=== PATIENT | female | born 1940 | race Caucasian/White ===

== ENCOUNTER 2020-10-16 09:43 | Emergency (ER) | payer OTHER, SELFPAY ==
[2020-10-16 09:51] VITALS: BP 138/94; BP 142/86; PULSE 77; PULSE 93; RESP 20; TEMP 36.8; O2SAT 93; BMI 49.6
--- NOTE | 2020-10-16 09:55 | XR_ITS ---
EXAMINATION: XR CHEST CLINICAL INFORMATION: Cough and fever. COMPARISON: Chest 01/03/2018 TECHNIQUE: Frontal view of the chest was obtained. FINDINGS: The lungs are expanded with increased interstitial markings in both lungs similar to previous study. No confluent infiltrate or pleural effusion seen. Heart size and pulmonary vascularity appears to be normal. No gross bony abnormality seen. XR/XR chest 1V IMPRESSION: Increase interstitial markings in both lungs similar previous study. Adjacent interstitial pneumonitis versus edema. Similar findings were seen on the previous study 01/03/2018
--- NOTE | 2020-10-16 09:55 | ECG_ITS ---
Test Reason : WEAKNESS Blood Pressure : / mmHG Vent. Rate : 083 BPM Atrial Rate : 097 BPM P-R Int : 000 ms QRS Dur : 078 ms QT Int : 370 ms P-R-T Axes : 000 -41 -26 degrees QTc Int : 434 ms Atrial fibrillation Left axis deviation Minimal voltage criteria for LVH, may be normal variant Nonspecific ST abnormality Abnormal ECG When compared with ECG of 03-JAN-2018 10:17, No significant change was found Referred By: Marck Joseph Electronically Signed By:BOBY DUVAL
[2020-10-16 10:26] LABS: Basophils Percent Auto 0.6 % (0-2); Eosinophils Percent Auto 0.3 % (0-4); Hematocrit 44.5 % (37-47); Hemoglobin 14.2 g/dl (12.0-16.0); Imm Gran Abs Auto 0.06 X10*3/uL (0.00-0.03); Imm Gran Pct Auto 1.8 % (0.0-0.4); Lymphocytes Absolute Auto 0.5 X10*3/uL (1.2-4.9); Lymphocytes Percent Auto 15.6 % (20-40); MANUAL DIFF FLAG SCAN; Mean Corpuscular HGB Conc 31.9 g/dl (31.0-35.0); Mean Corpuscular Hemoglobin 31.1 pg (27.0-33.0); Mean Corpuscular Volume 97.6 fL (80-98); Mean Platelet Volume 10.3 fL (9.4-12.3); Monocytes Absolute Auto 0.5 X10*3/uL (0.1-1.2); Monocytes Percent Auto 13.3 % (2-11); Neutrophils Absolute Auto 2.3 X10*3/uL (2.0-8.3); Neutrophils Percent Auto 68.4 % (45-73); Platelet Count 158 X10*3/uL (160-400); Red Blood Count 4.56 X10*6/uL (4.20-5.50); Red Cell Distribution Width 14.1 % (11.0-16.0); SCAN SMEAR FLAG 1; White Blood Count 3.4 X10*3/uL (4.8-10.8)
[2020-10-16 10:31] LABS: INTERNATIONAL NORM RATIO 1.1 (0.9-1.1); Prothrombin Time 12.8 SEC (10.8-13.0)
[2020-10-16 10:34] LABS: Partial Thromboplastin Time 31.4 SEC (24.1-38.0)
--- NOTE | 2020-10-16 10:36 | ED.GENADULT ---
HPI - General Adult General Chief complaint: Nausea/Vomiting/Diarrhea Stated complaint: NAUSEA AND VOMITING Time Seen by Provider: 10/16/20 09:55 Source: EMS Mode of arrival: EMS Limitations: no limitations History of Present Illness HPI narrative: 80-year-old female reports history of hypertension and atrial fibrillation chronically anticoagulated on Eliquis also surgical history of hysterectomy, appendectomy and cholecystectomy who presents today with 4 days of body aches and chills as well as nausea and vomiting. States Wednesday she started with upset stomach after eating something that evening had some body aches and subjective chills and fever and since has had some nausea and body aches with now some mild cough. States she has been isolated has not been outside for about 8 months now does not feel that she has COVID. Onset (ago): day(s) Severity: moderate Relieving factors: none Treatments prior to arrival: none Related Data Previous Rx's Medication Instructions Recorded citalopram 10 mg tablet 10 mg PO DAILY #90 tab 08/25/20 ondansetron HCl [Zofran] 4 mg PO Q8H PRN #10 tab 10/16/20 Allergies Allergy/AdvReac Type Severity Reaction Status Date / Time ciprofloxacin Allergy Unknown HIVES Unverified 06/13/20 15:11 warfarin [Coumadin] Allergy Unknown Rash Verified 01/25/19 00:00 From COUMADIN Allergy Unknown RASH Uncoded 06/13/20 15:11 Review of Systems Review of Systems: Constitutional: No Weight loss, + subjective Fever, + Chills, No Night Sweats, No Fatigue, No Malaise ENT/Mouth: No Hearing loss, No Ear Pain, No Nasal Congestion, No Sinus Pain, No Hoarseness, No sore throat, No Rhinorrhea, No Swallowing Difficulty Eyes: No Eye Pain, No Swelling, No Redness, No Foreign Body, No Discharge, No Vision Changes Cardiovascular: No Chest Pain, No SOB, No Dyspnea on Exertion, No Orthopnea, No Edema, No Palpitations Respiratory: +mild Cough, No Sputum, No Wheezing, No Smoke Exposure, No Dyspnea Gastrointestinal: As noted in HPI, No Constipation, No abdominal Pain, No Hematochezia, No Melena Genitourinary: no irregular bleeding, No Dysuria, No Urinary Frequency, No Hematuria, No Urinary Incontinence, No Urgency, No Flank Pain, No Urinary Flow Changes, No Hesitancy Musculoskeletal: No joint pain, No Myalgias, No Joint Swelling Skin: No Skin Lesions, No rash Neuro: No Weakness, No Numbness, No Paresthesias, No Loss of Consciousness, No Dizziness, No Headache Psych: No Social Issues Heme/Lymph: No Bruising, No Bleeding,No Lymphadenopathy Endocrine: No Polyuria, No Polydipsia, No Temperature Intolerance Yes all other systems are reviewed and are negative [facility] Past Medical History Medical History (Updated 10/17/20 @ 00:00 by Barrett Earl) Afib FH: cholecystectomy HTN (hypertension) Surgical History (Updated 10/16/20 @ 09:57 by Iveth Zambrano) H/O: hysterectomy History of appendectomy Social History Social History Alcohol intake: never Smoked in Last 30 Days: No Use of substances other than those prescribed or required for medical reasons: No Advance Directives: No Advance Directives Information Provided: No Physical Exam Vital Signs: Vital Signs: Last Vital Signs Temp 98.8 F 10/16/20 12:41 Pulse 89 10/16/20 12:41 Resp 22 H 10/16/20 12:41 BP 149/91 H 10/16/20 12:41 Pulse Ox 97 10/16/20 12:41 Body Mass Index 49.6 Reviewed Const: General: cooperative and healthy appearing; No acute distress or intoxicated appearing Nutritional Appearance: average body habitus Orientation/consciousness: patient oriented x3 HENMT: Head: Yes normal to inspection Ears: hearing grossly normal bilaterally Eyes: General: appearance normal, both eyes and all related structures Visual Benjamin: normal visual benjamin by confrontation Neck: Neck: Yes normal visual inspection, No positive Brudzinski's sign, No positive Kernig's sign and No tender Thyroid: Thyroid normal Chest: Chest palpation & inspection: normal inspection of the chest Resp: Effort & Inspection: normal respiratory effort Auscultation: clear to auscultation bilaterally Cardio: Jugular venous distension: no JVD Rhythm: regular rhythm Heart sounds: S1 normal heart sound present and S2 normal heart sound present GI: Inspection: Yes normal to inspection Palpation (GI): Soft to palpation Percussion: Yes normal to percussion Auscultation: normal bowel sounds : General: Yes no CVA tenderness Back/Spine/Pelvis: Back: no CVA tenderness Skin: General skin exam: no rashes or lesions noted Neuro: General: patient oriented x3 Extrem: General: Yes normal to inspection Course Course Course Narrative: COVID positive, has not had any chest pain or shortness of breath here. No nausea vomiting or diarrhea after 1 dose of Zofran. Has been resting comfortably hemodynamically stable. Pulse ox 98% on room air. Afebrile, nontoxic, non tachypneic. Otherwise workup stable no indication for admission this time. She has tolerated p.o. intake well. Educated on COVID-19 virus, return and follow-up instructions. She is comfortable plan. Stable discharge. Medical Decision Making Lab Data Result diagrams: 10/16/20 10:15 10/16/20 10:15 Labs: Lab Results 10/16/20 10/16/20 10/16/20 Range/Units 10:15 10:15 10:15 WBC 3.4 L (4.8-10.8) X10*3/uL RBC 4.56 (4.20-5.50) X10*6/uL Hgb 14.2 (12.0-16.0) g/dl Hct 44.5 (37-47) % MCV 97.6 (80-98) fL MCH 31.1 (27.0-33.0) pg MCHC 31.9 (31.0-35.0) g/dl RDW 14.1 (11.0-16.0) % Plt Count 158 L (160-400) X10*3/uL MPV 10.3 (9.4-12.3) fL Immature Gran % (Auto) 1.8 H (0.0-0.4) % Neut % (Auto) 68.4 (45-73) % Lymph % (Auto) 15.6 L (20-40) % Kendall % (Auto) 13.3 H (2-11) % Eos % (Auto) 0.3 (0-4) % Baso % (Auto) 0.6 (0-2) % Lymph # (Auto) 0.5 L (1.2-4.9) X10*3/uL Kendall # (Auto) 0.5 (0.1-1.2) X10*3/uL Eos # (Auto) 0.0 (0.0-0.4) X10*3/uL Baso # (Auto) 0.0 (0.0-0.2) X10*3/uL Abs Immat Gran (auto) 0.06 H (0.00-0.03) X10*3/uL Absolute Neuts (auto) 2.3 (2.0-8.3) X10*3/uL Absolute Nucleated RBC 0.000 (0.0-0.012) X10*3/uL Nucleated RBC % (auto) 0.0 (0.0-0.2) /100WBC Smear Tech's Comments VERIFIED PT 12.8 (10.8-13.0) SEC INR 1.1 (0.9-1.1) APTT 31.4 (24.1-38.0) SEC Sodium 138 (135-145) mmol/L Potassium 4.2 (3.3-5.1) mmol/l Chloride 102 (96-108) mmol/L Carbon Dioxide 26 (22-29) mmol/L Anion Gap 14 (12-20) BUN 16 (9-16) mg/dL Creatinine 1.01 (0.5-1.4) mg/dL Estim Creat Clear Calc 59.6 Estimated GFR 53 Random Glucose 133 H (60-115) mg/dL Calcium 8.4 (8.4-10.2) mg/dL Total Bilirubin 0.2 (0.0-1.0) mg/dL Direct Bilirubin < 0.2 (0.0-0.5) mg/dL AST 47 H (5-31) U/L ALT 41 H (0-31) U/L Alkaline Phosphatase 67 (39-117) U/L B-Natriuretic Peptide (<100) pg/mL Total Protein 7.2 (6.5-8.0) g/dL Albumin 3.9 (3.5-5.0) g/dL Coronavirus (PCR) (Negative) Influenza Type A (PCR) (Negative) Influenza Type B (PCR) (Negative) RSV RNA Qual (PCR) (Negative) 10/16/20 10/16/20 Range/Units 10:16 10:51 WBC (4.8-10.8) X10*3/uL RBC (4.20-5.50) X10*6/uL Hgb (12.0-16.0) g/dl Hct (37-47) % MCV (80-98) fL MCH (27.0-33.0) pg MCHC (31.0-35.0) g/dl RDW (11.0-16.0) % Plt Count (160-400) X10*3/uL MPV (9.4-12.3) fL Immature Gran % (Auto) (0.0-0.4) % Neut % (Auto) (45-73) % Lymph % (Auto) (20-40) % Kendall % (Auto) (2-11) % Eos % (Auto) (0-4) % Baso % (Auto) (0-2) % Lymph # (Auto) (1.2-4.9) X10*3/uL Kendall # (Auto) (0.1-1.2) X10*3/uL Eos # (Auto) (0.0-0.4) X10*3/uL Baso # (Auto) (0.0-0.2) X10*3/uL Abs Immat Gran (auto) (0.00-0.03) X10*3/uL Absolute Neuts (auto) (2.0-8.3) X10*3/uL Absolute Nucleated RBC (0.0-0.012) X10*3/uL Nucleated RBC % (auto) (0.0-0.2) /100WBC Smear Tech's Comments PT (10.8-13.0) SEC INR (0.9-1.1) APTT (24.1-38.0) SEC Sodium (135-145) mmol/L Potassium (3.3-5.1) mmol/l Chloride (96-108) mmol/L Carbon Dioxide (22-29) mmol/L Anion Gap (12-20) BUN (9-16) mg/dL Creatinine (0.5-1.4) mg/dL Estim Creat Clear Calc Estimated GFR Random Glucose (60-115) mg/dL Calcium (8.4-10.2) mg/dL Total Bilirubin (0.0-1.0) mg/dL Direct Bilirubin (0.0-0.5) mg/dL AST (5-31) U/L ALT (0-31) U/L Alkaline Phosphatase (39-117) U/L B-Natriuretic Peptide 22 (<100) pg/mL Total Protein (6.5-8.0) g/dL Albumin (3.5-5.0) g/dL Coronavirus (PCR) POSITIVE A (Negative) Influenza Type A (PCR) NEGATIVE (Negative) Influenza Type B (PCR) NEGATIVE (Negative) RSV RNA Qual (PCR) NEGATIVE (Negative) Imaging Data Chest/abdominal CT: Radiologist's impression: [address] [id number] Scan ReportSigned Patient: Cate Parker MMR#: [id number]: 3Acct:[id number]/Sex: 80 / FADM Date: 10/16/20Loc: ED[facility] Dr: Ordering Physician: Marck Joseph NP Date of Service: 10/16/20 Procedure(s): CT chest wo con Accession Number(s): [id number] cc: Marck Joseph SCIENTIFIC DIVER~ EXAMINATION: CT CHEST WITHOUT IV CONTRAST, ABDOMEN AND PELVIS WITH IV CONTRAST CLINICAL INFORMATION: Cough and fever. Abdominal pain. COMPARISON: Previous chest x-ray from earlier the same day and previous CT of the abdomen and pelvis September 2016 TECHNIQUE: Axial images through the chest without IV contrast, and abdomen and pelvis following oral and 100 mL Omnipaque 350 intravenous contrast. Sagittal and coronal reconstructions on the technologist workstation were performed. Patient dose 454+135 1 mg/cm. FINDINGS: CHEST: There are increased peripheral interstitial markings with interlobular septal thickening and increasing areas of increased parenchymal attenuation. Possible interstitial lung disease should be considered. Appearance is atypical for acute Covid infection. It is possible findings represent residual changes from old Covid infection. Correlation with clinical history is recommended. No pulmonary nodule, mass or dense consolidation/lobar pneumonia is seen. There is no endobronchial or endotracheal lesion. No evidence of emphysema or bronchiectasis is seen. The visualized thyroid gland is unremarkable. There are small mediastinal lymph nodes. No enlarged lymph nodes are seen. The heart does not appear enlarged. There is mild coronary artery calcification. There is no pericardial effusion. There is a small esophageal hernia. There is no pleural effusion or pleural thickening. No chest wall mass or enlarged axillary lymph nodes are seen. There are degenerative changes of the thoracic spine. Abdomen and pelvis: The liver is slightly low in attenuation suggestive of fatty infiltration. The gallbladder is been removed. There is no biliary duct dilatation. The spleen is unremarkable. The pancreas is unremarkable. The adrenal glands are unremarkable. The left kidney is slightly smaller than the right. There are areas of left renal cortical thinning or scarring. The kidneys are otherwise unremarkable. The bladder is not optimally distended. The uterus appears to have been removed. No pelvic mass is seen. There is diverticulosis of the colon. Small and large bowel is otherwise unremarkable. The stomach is unremarkable. There is evidence of atherosclerotic disease. No ascites or adenopathy is seen. There is diastasis of the rectus muscles. There are umbilical and infraumbilical or low ventral hernias containing fat. There are degenerative changes of the spine. CT/CT chest wo con IMPRESSION: CHEST: Increased peripheral interstitial markings and areas of increased increased peripheral attenuation. Chest CT CT appearance is most suggestive of interstitial lung disease. Appearance is not suggestive of acute COVID infection. It is possible this represents changes from old Covid infection. Clinical correlation recommended. Shotty mediastinal lymphadenopathy. Mild coronary artery calcification. Small esophageal hernia. Abdomen and pelvis: Diverticulosis of the colon. No evidence of diverticulitis. Fatty liver. Left renal cortical thinning or scarring. Umbilical and inferior umbilical or low ventral hernias containing fat. Dictated By:LAVERNE GONG MDSigned By:<Electronically signed by LAVERNE GONG MD in OV>10/16/20 1403 DD/ 1159TD/TT: Weld Inspector: JOIE ECG Data Interpretation: Atrial fibrillation Left axis deviation Minimal voltage criteria for LVH, may be normal variant Nonspecific ST abnormality Abnormal ECG When compared with ECG of 03-JAN-2018 10:17, No significant change was found Discharge Plan Discharge Clinical Impression: Nausea & vomiting, COVID-19 Patient Disposition: Home, Self-Care Instructions: Acute Nausea and Vomiting (ED), COVID-19 (Coronavirus Disease 2019) (ED) Prescriptions: New ondansetron HCl [Zofran] 4 mg tablet 4 mg PO Q8H PRN (Reason: nausea and vomiting) Qty: 10 RF: 0 No Action citalopram 10 mg tablet 10 mg PO DAILY Qty: 90 RF: 0 Interventions: ED Discharge Assessment Last Done: 10/16/20 15:08 Discharge Date/Time: 10/16/20 16:01
[2020-10-16 10:59] LABS: Alanine Aminotransferase 41 U/L (0-31); Albumin Level 3.9 g/dL (3.5-5.0); Alkaline Phosphatase 67 U/L (39-117); Anion Gap 14 (12-20); Aspartate Amino Transferase 47 U/L (5-31); Bilirubin Direct < 0.2 mg/dL (0.0-0.5); Bilirubin Total 0.2 mg/dL (0.0-1.0); Blood Urea Nitrogen 16 mg/dL (9-16); Calcium 8.4 mg/dL (8.4-10.2); Carbon Dioxide 26 mmol/L (22-29); Chloride 102 mmol/L (96-108); Creatinine Clr Calc Pharmacy 59.6; Estimated Glomerular Filt Rate 53; Glucose Random 133 mg/dL (60-115); Potassium 4.2 mmol/l (3.3-5.1); SLIDE REVIEW VERIFIED; Sodium 138 mmol/L (135-145); Total Protein 7.2 g/dL (6.5-8.0)
[2020-10-16 11:11] VITALS: BP 149/93; PULSE 90; RESP 16; TEMP 37.4; O2SAT 96
[2020-10-16 11:33] LABS: B Type Natriuretic Peptide 22 pg/mL (<100)
[2020-10-16 11:45] LABS: Influenza A PCR NEGATIVE (Negative); Influenza B PCR NEGATIVE (Negative); Resp Syncy Virus RNA Qual PCR NEGATIVE (Negative); SARS COV2 PCR INHOUSE POSITIVE (Negative)
--- NOTE | 2020-10-16 11:59 | CT_ITS ---
EXAMINATION: CT CHEST WITHOUT IV CONTRAST, ABDOMEN AND PELVIS WITH IV CONTRAST CLINICAL INFORMATION: Cough and fever. Abdominal pain. COMPARISON: Previous chest x-ray from earlier the same day and previous CT of the abdomen and pelvis September 2016 TECHNIQUE: Axial images through the chest without IV contrast, and abdomen and pelvis following oral and 100 mL Omnipaque 350 intravenous contrast. Sagittal and coronal reconstructions on the technologist workstation were performed. Patient dose 454+135 1 mg/cm. FINDINGS: CHEST: There are increased peripheral interstitial markings with interlobular septal thickening and increasing areas of increased parenchymal attenuation. Possible interstitial lung disease should be considered. Appearance is atypical for acute Covid infection. It is possible findings represent residual changes from old Covid infection. Correlation with clinical history is recommended. No pulmonary nodule, mass or dense consolidation/lobar pneumonia is seen. There is no endobronchial or endotracheal lesion. No evidence of emphysema or bronchiectasis is seen. The visualized thyroid gland is unremarkable. There are small mediastinal lymph nodes. No enlarged lymph nodes are seen. The heart does not appear enlarged. There is mild coronary artery calcification. There is no pericardial effusion. There is a small esophageal hernia. There is no pleural effusion or pleural thickening. No chest wall mass or enlarged axillary lymph nodes are seen. There are degenerative changes of the thoracic spine. Abdomen and pelvis: The liver is slightly low in attenuation suggestive of fatty infiltration. The gallbladder is been removed. There is no biliary duct dilatation. The spleen is unremarkable. The pancreas is unremarkable. The adrenal glands are unremarkable. The left kidney is slightly smaller than the right. There are areas of left renal cortical thinning or scarring. The kidneys are otherwise unremarkable. The bladder is not optimally distended. The uterus appears to have been removed. No pelvic mass is seen. There is diverticulosis of the colon. Small and large bowel is otherwise unremarkable. The stomach is unremarkable. There is evidence of atherosclerotic disease. No ascites or adenopathy is seen. There is diastasis of the rectus muscles. There are umbilical and infraumbilical or low ventral hernias containing fat. There are degenerative changes of the spine. CT/CT abdomen pelvis w con IMPRESSION: CHEST: Increased peripheral interstitial markings and areas of increased increased peripheral attenuation. Chest CT CT appearance is most suggestive of interstitial lung disease. Appearance is not suggestive of acute COVID infection. It is possible this represents changes from old Covid infection. Clinical correlation recommended. Shotty mediastinal lymphadenopathy. Mild coronary artery calcification. Small esophageal hernia. Abdomen and pelvis: Diverticulosis of the colon. No evidence of diverticulitis. Fatty liver. Left renal cortical thinning or scarring. Umbilical and inferior umbilical or low ventral hernias containing fat.
[2020-10-16 12:41] VITALS: BP 149/91; PULSE 89; RESP 22; TEMP 37.1; O2SAT 97
[2020-10-16] MEDS: ondansetron HCL 4 MG/2 ML VIAL IVPUSH (12:54)
[2020-10-16] MEDS: iohexoL 350 MG/ML 100 ML INFUS..BTL IV (13:46)
== END 2020-10-16 16:01 | disposition home or self-care (01) ==
PROVIDERS: Nurse Practitioner Primary Care; Emergency Provider Emergency Medicine; PCP Internal Medicine
DX: U07.1 COVID-19 (principal); R11.2 Nausea with vomiting, unspecified; R05 Cough; R50.9 Fever, unspecified; R10.9 Unspecified abdominal pain
CPT/HCPCS: 0241U; 36415; 71045; 71250; 74177; 80053; 80076; 82248; 83880; 85025; 85610; 85730; 93005; 96374; 99284; J2405; Q9967

== ENCOUNTER 2020-12-05 08:54 | Outpatient (REF) | payer MEDICARE, SELFPAY ==
[2020-12-05 12:17] LABS: Alanine Aminotransferase 14 U/L (0-31); Anion Gap 13 (12-20); Aspartate Amino Transferase 16 U/L (5-31); Blood Urea Nitrogen 17 mg/dL (9-16); Calcium 9.5 mg/dL (8.4-10.2); Carbon Dioxide 30 mmol/L (22-29); Chloride 102 mmol/L (96-108); Cholesterol 147 mg/dL; Estimated Glomerular Filt Rate 50; Glucose Fasting 126 mg/dL (60-99); HDL Cholesterol 57 mg/dL; LDL Cholesterol Calculated 57 mg/dl; Potassium 4.4 mmol/L (3.3-5.1); Sodium 141 mmol/L (135-145); Triglycerides 165 mg/dL
[2020-12-05 12:18] LABS: Vitamin D 25-OH Total 39.8 ng/mL (>30)
== END 2020-12-05 08:55 | disposition home or self-care (01) ==
LOC: HO.HMGCLDS 08:54
PROVIDERS: PCP Internal Medicine; Visit Provider Internal Medicine
DX: E78.5 Hyperlipidemia, unspecified (principal); I10 Essential (primary) hypertension; Z78.0 Asymptomatic menopausal state
CPT/HCPCS: 36415; 80048; 80061; 82306; 84450; 84460

== ENCOUNTER → 2021-04-30 12:08 | Outpatient (BNVA) | payer MEDICARE, SELFPAY | PROVIDERS: PCP Internal Medicine; Visit Provider Internal Medicine | DX: I48.21 Permanent atrial fibrillation (principal); I42.8 Other cardiomyopathies | CPT/HCPCS: 93005; 99202 ==

== ENCOUNTER 2021-06-24 08:25 | Outpatient (REF) | payer MEDICARE, SELFPAY ==
[2021-06-24 12:13] LABS: Alanine Aminotransferase 12 U/L (0-31); Anion Gap 17 (12-20); Aspartate Amino Transferase 13 U/L (5-31); Blood Urea Nitrogen 12 mg/dL (9-16); Calcium 9.1 mg/dL (8.4-10.2); Carbon Dioxide 26 mmol/L (22-29); Chloride 105 mmol/L (96-108); Cholesterol 157 mg/dL; Estimated Glomerular Filt Rate 51; Glucose Fasting 124 mg/dL (60-99); HDL Cholesterol 56 mg/dL; LDL Cholesterol Calculated 58 mg/dl; Potassium 4.5 mmol/L (3.3-5.1); Sodium 143 mmol/L (135-145); Triglycerides 217 mg/dL
[2021-06-24 12:16] LABS: TSH reflex Free T4 2.58 uIU/mL (0.32-4.0); Vitamin D 25-OH Total 38.8 ng/mL (>30)
== END 2021-06-24 08:26 | disposition home or self-care (01) ==
LOC: HO.HMGCLDS 08:25
PROVIDERS: PCP Internal Medicine; Visit Provider Internal Medicine
DX: I48.91 Unspecified atrial fibrillation (principal); F32.9 Major depressive disorder, single episode, unspecified; I10 Essential (primary) hypertension; E78.5 Hyperlipidemia, unspecified; Z78.0 Asymptomatic menopausal state
CPT/HCPCS: 36415; 80048; 80061; 82306; 84443; 84450; 84460

== ENCOUNTER 2021-08-23 11:34 | Outpatient (REF) | payer MEDICARE, SELFPAY ==
--- NOTE | ~2021-08-23 | XR_ITS ---
EXAMINATION: XR CHEST CLINICAL INFORMATION: Bronchitis. COMPARISON: Chest 10/16/2020 TECHNIQUE: 2 views of the chest were obtained. FINDINGS: The lungs are well-expanded with prominent vascular markings and underlying fine interstitial markings as well. Heart size is borderline normal. No gross bony abnormality. XR/XR chest 2V IMPRESSION: Suspect central pulmonary vascular congestion with underlying mild chronic interstitial lung changes. Similar findings were seen on chest x-ray and CT chest exam 10/16/2020
== END 2021-08-23 11:35 | disposition home or self-care (01) ==
LOC: HO.HMGCX 11:34
PROVIDERS: PCP Internal Medicine; Visit Provider Internal Medicine
DX: J40 Bronchitis, not specified as acute or chronic (principal)
CPT/HCPCS: 71046

== ENCOUNTER 2021-08-23 13:05 | Outpatient (REF) | payer MEDICARE, SELFPAY ==
[2021-08-23 14:22] LABS: Influenza A PCR NEGATIVE (Negative); Influenza B PCR NEGATIVE (Negative); Resp Syncy Virus RNA Qual PCR NEGATIVE (Negative); SARS COV2 PCR INHOUSE NEGATIVE (Negative)
== END 2021-08-23 13:06 | disposition home or self-care (01) ==
LOC: HO.LNP 13:05
PROVIDERS: Visit Provider Internal Medicine
DX: Z20.822 Contact with and (suspected) exposure to COVID-19 (principal); R43.9 Unspecified disturbances of smell and taste
CPT/HCPCS: 0241U

== ENCOUNTER 2021-12-23 08:51 | Outpatient (REF) | payer MEDICARE, SELFPAY ==
[2021-12-23 11:33] LABS: MANUAL DIFF FLAG NO
[2021-12-23 11:46] LABS: Basophils Percent Auto 0.4 % (0-2); Eosinophils Absolute Auto 0.2 X10*3/uL (0.0-0.4); Eosinophils Percent Auto 1.8 % (0-4); Hematocrit 43.2 % (37.0-47.0); Hemoglobin 13.7 g/dl (12.0-16.0); Imm Gran Abs Auto 0.09 X10*3/uL (0.00-0.03); Imm Gran Pct Auto 1.1 % (0.0-0.4); Lymphocytes Absolute Auto 1.1 X10*3/uL (1.2-4.9); Mean Corpuscular HGB Conc 31.7 g/dl (31.0-35.0); Mean Corpuscular Hemoglobin 31.6 pg (27.0-33.0); Mean Corpuscular Volume 99.8 fL (80.0-98.0); Mean Platelet Volume 10.8 fL (9.4-12.3); Monocytes Absolute Auto 0.6 X10*3/uL (0.1-1.2); Monocytes Percent Auto 6.6 % (2-11); Neutrophils Absolute Auto 6.5 x10*3/uL (2.0-8.3); Neutrophils Percent Auto 77.1 % (45-73); Platelet Count 225 X10*3/uL (160-400); Red Blood Count 4.33 X10*6/uL (4.20-5.50); Red Cell Distribution Width 14.3 % (11.0-16.0); White Blood Count 8.5 X10*3/uL (4.8-10.8)
[2021-12-23 11:54] LABS: Alanine Aminotransferase 12 U/L (0-31); Anion Gap 14 (12-20); Aspartate Amino Transferase 13 U/L (5-31); Blood Urea Nitrogen 19 mg/dL (9-16); Calcium 9.4 mg/dL (8.4-10.2); Carbon Dioxide 29 mmol/L (22-29); Chloride 103 mmol/L (96-108); Cholesterol 156 mg/dL; Estimated Glomerular Filt Rate 43; Glucose Fasting 134 mg/dL (60-99); HDL Cholesterol 52 mg/dL; LDL Cholesterol Calculated 66 mg/dl; Potassium 4.6 mmol/L (3.3-5.1); Sodium 141 mmol/L (135-145); Triglycerides 192 mg/dL
[2021-12-23 12:17] LABS: Vitamin D 25-OH Total 47.6 ng/mL (>30)
== END 2021-12-23 08:52 | disposition home or self-care (01) ==
LOC: HO.HMGCLDS 08:51
PROVIDERS: Visit Provider Internal Medicine
DX: I10 Essential (primary) hypertension (principal); I48.21 Permanent atrial fibrillation; E78.5 Hyperlipidemia, unspecified; R73.01 Impaired fasting glucose; Z78.0 Asymptomatic menopausal state
CPT/HCPCS: 36415; 80048; 80061; 82306; 84450; 84460; 85025

== ENCOUNTER → 2022-04-02 12:36 | Outpatient (REF) | payer MEDICARE, SELFPAY ==
--- NOTE | 2022-04-02 12:40 | CA_ITS ---
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 Low normal LVEF of 50-55% 2. Mild mitral regurgitation 3. No gross pericardial effusion Findings Left Ventricle Normal left ventricular cavity size. There is normal left ventricular wall thickness. The left ventricular systolic function is low normal. The visually estimated ejection fraction is between 50-55%. Diastolic function is indeterminate on the basis of available data. Right Ventricle Normal right ventricular cavity size. Atria The left atrium is likely dilated. There is lipomatous hypertrophy of the interatrial septum. There is no evidence of interatrial shunt. The right atrium was not well visualized. Aortic Valve There is mild calcification of the aortic valve. There is no aortic valve stenosis. There is no aortic valve regurgitation. Mitral Valve There is mild anterior and posterior mitral leaflet thickening. There is mild mitral annular calcification. There is mild mitral valve regurgitation. There is no mitral valve stenosis. Pulmonic Valve The pulmonic valve was not well visualized. Tricuspid Valve The tricuspid valve was not well visualized. Tricuspid regurgitation envelope is inadequate for calculation of right ventricular systolic pressure. Normal right atrial pressure. Great Vessels All visible segments of the aorta are normal in size. The pulmonary artery was not well visualized. Pericardium/Pleural There is no evidence of pericardial effusion. Prior Study Comparison Changes noted compared to prior study dated: 07/20/2014. LV systolic function is marginally improved Measurements 2D Linear Measurements IVSd: 0.88 0.6-0.9/0.6-1.0 cm LVIDd: 4.94 3.9-5.3/4.2-5.9 cm LVIDd Index: 2.22 2.4-3.2/2.2-3.1 cm/m2 LVIDs: 3.81 2.0-3.6 cm LVPWd: 1.00 0.7-1.1 cm LA Diam: 3.60 2.7-3.8/3.0-4.0 cm LAIDs Index: 1.61 1.5-2.3 cm/m2 LV Mass: 204.96 67-162/88-224 g LV Mass Index: 91.91 43-95/49-115 g/m2 LVOT Diam: 1.90 3.0+(-)1.3 cm 2D Systolic Function EF 4C: 51.60 >55% EF 2C: 49.50 >55% EF BiP: 50.50 >55% Mitral Valve MV Pk E: 1.18 MV Decel Time: 210.00 E'Lateral: 9.19 E'Medial: 7.06 E/E' Med: 16.70 E/E' Lat: 12.80 PHT: 62.00 MVA PHT: 3.55 Decel Pike: 5.64 Aortic Valve AoV Pk Malvin: 1.29 AoV Mn Malvin: 0.89 AoV VTI: 0.29 AoV Pk Grad: 7.00 Aov Mn Grad: 4.00 DESTINI Cont.VTI: 1.74 LVOT LVOT Pk Malvin: 0.80 LVOT Mn Malvin: 0.54 LVOT VTI: 0.18 LVOT Pk Grad: 3.00 LVOT Mn Grad: 1.00 LVOT Diam: 1.90 LVOT Area: 2.84 Diastolic Function MV Pk E: 1.18 E'Medial: 7.06 E/E' Med: 16.70 E' Laterial: 9.19 E/E' Lat: 12.80 Right Ventricle TAPSE (mm): 17.50 TVS' Malvin: 7.59 Tricuspid Valve RA Press: 3.00 Great Vessels Aorta Sinus of Valsalva: 3.54 2.0-3.[address] Ridge: 2.82 1.7-3.4 cm Ao Asc: 3.30 2.1-3.4 cm Updated in Other Vendor System with Status of Final Clif Fernandez MD electronically signed on 04/03/2022 12:36:44 PM with status of Final
== END ==
LOC: HO.CARD 12:36
PROVIDERS: PCP Internal Medicine; Visit Provider Internal Medicine
DX: I42.8 Other cardiomyopathies (principal)
CPT/HCPCS: 93306

== ENCOUNTER → 2022-04-06 12:40 | Outpatient (BNVA) | payer MEDICARE, SELFPAY | PROVIDERS: PCP Internal Medicine; Referring Provider Internal Medicine; Visit Provider Internal Medicine Cardiovascular Disease | DX: I48.21 Permanent atrial fibrillation (principal); I42.8 Other cardiomyopathies; Z79.01 Long term (current) use of anticoagulants | CPT/HCPCS: 99212 ==

== ENCOUNTER 2022-07-02 09:20 | Outpatient (REF) | payer MEDICARE, SELFPAY ==
[2022-07-02 11:25] LABS: Estimated Average Glucose 120 mg/dL; Hemoglobin A1c % 5.8 %
[2022-07-02 11:51] LABS: Vitamin D 25-OH Total 43.3 ng/mL (>30)
[2022-07-02 11:54] LABS: Alanine Aminotransferase 12 U/L (0-31); Anion Gap 15 (12-20); Aspartate Amino Transferase 15 U/L (5-31); Blood Urea Nitrogen 16 mg/dL (9-16); Calcium 9.2 mg/dL (8.4-10.2); Carbon Dioxide 28 mmol/L (22-29); Chloride 104 mmol/L (96-108); Cholesterol 160 mg/dL; Estimated Glomerular Filt Rate > 60; Glucose Fasting 127 mg/dL (60-99); HDL Cholesterol 44 mg/dL; LDL Cholesterol Calculated 70 mg/dl; Potassium 4.4 mmol/L (3.3-5.1); Sodium 143 mmol/L (135-145); Triglycerides 233 mg/dL
== END 2022-07-02 09:21 | disposition home or self-care (01) ==
LOC: HO.HMGCLDS 09:20
PROVIDERS: PCP Internal Medicine; Visit Provider Internal Medicine
DX: N95.9 Unspecified menopausal and perimenopausal disorder (principal); I10 Essential (primary) hypertension; R73.01 Impaired fasting glucose; E78.5 Hyperlipidemia, unspecified
CPT/HCPCS: 36415; 80048; 80061; 82306; 83036; 84450; 84460

== ENCOUNTER 2022-09-14 17:54 | Emergency (ER) | payer MEDICARE, SELFPAY ==
--- NOTE | ~2022-09-14 | CT_ITS ---
EXAMINATION: CT ABDOMEN AND PELVIS WITHOUT CONTRAST CLINICAL INFORMATION: Colitis, abdominal pain. COMPARISON: CT abdomen and pelvis with contrast 10/16/2020. TECHNIQUE: Multidetector volumetric imaging was performed from the superior aspect of the liver through the pubic symphysis. Sagittal and coronal reformatted images were obtained on the technologist's workstation. This CT examination was performed using dose optimization techniques as appropriate, variously including the following: *Automated exposure control *Adjustment of mA and/or kV according to patient size (this includes techniques or standardized protocols for targeted exams where dose is matched to indication/reason for exam; i.e. extremities or head) *Use of iterative reconstruction technique DLP: 1182 mGy-cm FINDINGS: LUNG BASES: Minimal subpleural reticulation left lung base likely chronic changes. Heart size is normal. Suspect small hiatal hernia. LIVER, GALLBLADDER, AND BILIARY TREE: The liver is normal in size, shape, and attenuation. No focal hepatic lesion or biliary ductal dilatation is present. The gallbladder has been surgically removed. PANCREAS: Unremarkable. SPLEEN: Unremarkable. ADRENAL GLANDS: There is prominence of left adrenal gland. The right adrenal gland is normal. KIDNEYS AND URETERS: The left kidney is lobulated and slightly smaller compared to right side with areas of cortical scarring. No radiopaque renal calculi or hydronephrosis seen. BLADDER: The bladder is wall is slightly thickened however this could be due to underdistention. GASTROINTESTINAL TRACT: There is diffuse colonic diverticula is most prominent in the sigmoid region without diverticulitis. No bowel distention seen. There is no mural thickening. No pericolic fat stranding. The small bowel loops are normal caliber. The stomach is not distended. Appendix is not visualized. ABDOMINAL WALL: There are at least 2 infraumbilical hernias to left and right of midline the left hernia neck measures 3.0 cm wide on axial image 63/3 and the right hernia neck measures 1.4 cm wide on axial image 63/3. LYMPH NODES: Normal. VASCULAR: There is atherosclerotic changes of abdominal aorta without aneurysmal dilatation. PELVIC VISCERA: Unremarkable. OSSEOUS STRUCTURES: Mild degenerative disc changes with vacuum disc phenomena L5-S1 disc level is noted. No aggressive lytic or sclerotic process seen. CT/CT abdomen pelvis wo IV con IMPRESSION: No acute intra-abdominal process seen. Diverticulosis of colon most prominent in sigmoid region but no evidence of diverticulitis. Anterior abdominal while periumbilical hernias, Stable. Fleischner guidelines were followed.
[2022-09-14 17:58] VITALS: BP 124/70; PULSE 53; O2SAT 98
[2022-09-14 18:01] VITALS: BP 139/82; PULSE 96; RESP 22; TEMP 36.8; O2SAT 94; BMI 53.1
--- NOTE | 2022-09-14 18:44 | ED.ABDPAIN ---
HPI - Abdominal Pain General Chief Complaint: General Medical Stated Complaint: VOMITING/DIARRHEA SINCE WEDNESDAY Time Seen by Provider: 09/14/22 18:35 Source: patient Mode of arrival: ambulatory Limitations: no limitations History of Present Illness HPI narrative: Patient complaining of vomiting and diarrhea for last 3 days with history of hypertension atrial fibrillation cardiomyopathy on Xarelto had similar episodes of diarrhea and vomiting 3 weeks ago lasted for 1 day this time patient been sick for last 3 days having multiple episode of loose bowels watery stool nonbloody as with vomiting and severe nausea last vomiting was more than 24 hours ago patient took Imodium yesterday and did not have any bowel movement but again today had multiple watery stools associated with diffuse abdominal cramps no use of antibiotics last few months and no other resident in the [facility] sick with same patient did not have any seafood lately. No fever no chills Related Data Previous Rx's Medication Instructions Recorded citalopram 10 mg tablet 10 mg PO DAILY #90 tabs 12/15/21 lorazepam 0.5 mg tablet 0.5 mg PO DAILY PRN anxiety #14 12/30/21 tabs pravastatin 40 mg tablet 40 mg PO BEDTIME #90 tabs 12/30/21 metoprolol succinate 100 mg 100 mg PO DAILY #90 tabs 04/06/22 tablet,extended release 24 hr (Toprol XL) fluconazole 200 mg tablet 200 mg PO DAILY 14 days #14 tabs 06/19/22 (Diflucan) rivaroxaban 20 mg tablet 20 mg PO DAILY #90 tabs 07/06/22 celecoxib 200 mg capsule 200 mg PO DAILY PRN severe joint 08/03/22 pain #30 caps cefuroxime axetil 500 mg tablet 500 mg PO BID #10 tabs 09/14/22 ondansetron 4 mg disintegrating 4 mg PO Q6-8H PRN nausea and 09/14/22 tablet vomiting #10 tabs Allergies Allergy/AdvReac Type Severity Reaction Status Date / Time ciprofloxacin Allergy Unknown HIVES Verified 09/14/22 18:02 warfarin [Coumadin] Allergy Unknown Rash Verified 09/14/22 18:02 Review of Systems Review of Systems Yes all other systems are reviewed and are negative PMFSH Past Medical History Medical History Afib Bilateral knee pain Depression Dyslipidemia Essential hypertension FH: cholecystectomy HTN (hypertension) Impaired fasting glucose Recurrent depressive disorder, currently in remission Surgical History H/O: hysterectomy History of appendectomy Hx of cholecystectomy Family History Family History Father No problems noted. Mother No problems noted. Brother No problems noted. Son Mental health disorder Son No problems noted. Daughter Mental health disorder Daughter No problems noted. Daughter No problems noted. Social History Social History Housing: Apartment Alcohol intake: never Patient Tobacco Use Status: Former Tobacco user Quit Date: 2011 e-Cigarette/Vaping Use: Never Used Advance Directives: No Advance Directives Information Provided: No Current occupational status: retired Cognitive needs: No Hearing needs: No Vision needs: No Physical Exam ED Vital Signs: Vital Signs - 24 hr 09/14/22 18:01 09/14/22 19:24 09/14/22 20:38 Temperature 98.3 F 98.2 F Pulse Rate 96 93 Respiratory Rate 22 H 22 H 18 Blood Pressure 139/82 152/84 H Pulse Oximetry 94 95 Oxygen Delivery Method Room Air Room Air 09/14/22 20:44 Temperature Pulse Rate 92 Respiratory Rate 18 Blood Pressure 150/75 H Pulse Oximetry 96 Oxygen Delivery Method Room Air BMI result Body Mass Index 53.1 Appearance: Alert. Oriented X3. No acute distress. Obese Eyes: PERRLA, No Nystagmus ENT: Pharynx normal. Oral Mucosa moist Neck: Normal inspection. Neck supple. CVS: Normal heart rate and rhythm. Pulses normal. Respiratory: No respiratory distress. Equal air entry bilateral, no wheezing/rales/rhonchi Abdomen: Soft , diffuse abdominal tenderness no rebound tenderness or guarding, Bowel sounds are present, no mass palpable, no CVA tenderness Skin: Skin warm and dry. Normal skin color. Normal skin turgor. Extremities: No lower extremity edema. No calf tenderness Neuro: Oriented X 3. No motor deficit. Medical Decision Making Medical Decision Making MDM Narrative: Patient with acute gastroenteritis with weakness. Lab workup shows normal WBCs and chemistry patient able to move her bowels in the ER unable to get the stool sample CT scan of the abdomen is negative for acute colitis. As patient has severe diarrhea will give short course of antibiotics Ceftin which can be used in patient with severe diarrhea sometimes of unknown etiology. In the ER patient feeling much better after IV fluids and Zofran IV Lab Data MDM Lab Attestation statement: I reviewed the patient's lab results. Result Diagrams: 09/14/22 19:30 09/14/22 19:30 Labs: Lab Results 09/14/22 09/14/22 Range/Units 19:30 19:30 WBC 9.0 (4.8-10.8) X10*3/uL RBC 4.45 (4.20-5.50) X10*6/uL Hgb 13.9 (12.0-16.0) g/dl Hct 44.1 (37.0-47.0) % MCV 99.1 H (80.0-98.0) fL MCH 31.2 (27.0-33.0) pg MCHC 31.5 (31.0-35.0) g/dl RDW 13.9 (11.0-16.0) % Plt Count 204 (160-400) X10*3/uL MPV 10.1 (9.4-12.3) fL Immature Gran % (Auto) 0.8 H (0.0-0.4) % Neut % (Auto) 80.2 H (45-73) % Lymph % (Auto) 10.0 L (20-40) % [place] % (Auto) 8.6 (2-11) % Eos % (Auto) 0.1 (0-4) % Baso % (Auto) 0.3 (0-2) % Lymph # (Auto) 0.9 L (1.2-4.9) X10*3/uL [place] # (Auto) 0.8 (0.1-1.2) X10*3/uL Eos # (Auto) 0.0 (0.0-0.4) X10*3/uL Baso # (Auto) 0.0 (0.0-0.2) X10*3/uL Abs Immat Gran (auto) 0.07 H (0.00-0.03) X10*3/uL Absolute Neuts (auto) 7.2 (2.0-8.3) x10*3/uL Absolute Nucleated RBC 0.000 (0.0-0.012) X10*3/uL Nucleated RBC % (auto) 0.0 (0.0-0.2) /100WBC Sodium 142 (135-145) mmol/L Potassium 3.5 D (3.3-5.1) mmol/L Chloride 105 (96-108) mmol/L Carbon Dioxide 27 (22-29) mmol/L Anion Gap 14 (12-20) BUN 13 (9-16) mg/dL Creatinine 1.11 (0.5-1.4) mg/dL Estim Creat Clear Calc 55.7 Estimated GFR 47 Random Glucose 116 H (60-115) mg/dL Calcium 8.7 (8.4-10.2) mg/dL Magnesium 1.8 (1.6-2.6) mg/dL Total Bilirubin 0.6 (0.0-1.0) mg/dL AST 25 (5-31) U/L ALT 26 (0-31) U/L Alkaline Phosphatase 69 (39-117) U/L Total Protein 6.9 (6.5-8.0) g/dL Albumin 3.9 (3.5-5.0) g/dL Lipase 19 (8-78) U/L Medications Administered Discontinued Medications Generic Name Dose Route Start Last Admin Trade Name Freq PRN Reason Stop Dose Admin Sodium Chloride 1,000 mls @ 999 mls/hr 09/14/22 18:53 09/14/22 20:37 Ns IV 09/14/22 19:53 999 mls/hr .Q1H1M ONE Administration Morphine Sulfate 2 mg 09/14/22 18:53 09/14/22 20:38 Morphine Sulfate 2 Mg/Ml Cartridge IVPUSH 09/14/22 18:54 2 mg ONCE ONE Administration Protocol Ondansetron HCl 4 mg 09/14/22 18:53 09/14/22 20:38 Ondansetron Hcl 4 Mg/2 Ml Vial IVPUSH 09/14/22 18:54 4 mg ONCE ONE Administration Discharge Plan Discharge Clinical Impression: Gastroenteritis Patient Disposition: Home, Self-Care Instructions: Gastroenteritis (ED) Additional Instructions: Drink plenty of fluids Short course of Antibiotic as advised Medicine for nausea as prescribed Follow-up with your PCP Prescriptions: New cefuroxime axetil 500 mg tablet 500 mg PO BID Qty: 10 0RF ondansetron 4 mg tablet,disintegrating 4 mg PO Q6-8H PRN (Reason: nausea and vomiting) Qty: 10 0RF No Action citalopram 10 mg tablet 10 mg PO DAILY Qty: 90 3RF celecoxib 200 mg capsule 200 mg PO DAILY PRN (Reason: severe joint pain) Qty: 30 1RF fluconazole [Diflucan] 200 mg tablet 200 mg PO DAILY 14 Days Qty: 14 0RF pravastatin 40 mg tablet 40 mg PO BEDTIME Qty: 90 4RF lorazepam 0.5 mg tablet 0.5 mg PO DAILY PRN (Reason: anxiety) Qty: 14 0RF rivaroxaban 20 mg tablet 20 mg PO DAILY Qty: 90 4RF metoprolol succinate [Toprol XL] 100 mg tablet extended release 24 hr 100 mg PO DAILY Qty: 90 3RF
[2022-09-14 19:24] VITALS: BP 152/84; PULSE 93; RESP 22; TEMP 36.8; O2SAT 95
[2022-09-14 19:35] LABS: MANUAL DIFF FLAG NO
[2022-09-14 19:38] LABS: Basophils Percent Auto 0.3 % (0-2); Eosinophils Percent Auto 0.1 % (0-4); Hematocrit 44.1 % (37.0-47.0); Hemoglobin 13.9 g/dl (12.0-16.0); Imm Gran Abs Auto 0.07 X10*3/uL (0.00-0.03); Imm Gran Pct Auto 0.8 % (0.0-0.4); Lymphocytes Absolute Auto 0.9 X10*3/uL (1.2-4.9); Mean Corpuscular HGB Conc 31.5 g/dl (31.0-35.0); Mean Corpuscular Hemoglobin 31.2 pg (27.0-33.0); Mean Corpuscular Volume 99.1 fL (80.0-98.0); Mean Platelet Volume 10.1 fL (9.4-12.3); Monocytes Absolute Auto 0.8 X10*3/uL (0.1-1.2); Monocytes Percent Auto 8.6 % (2-11); Neutrophils Absolute Auto 7.2 x10*3/uL (2.0-8.3); Neutrophils Percent Auto 80.2 % (45-73); Platelet Count 204 X10*3/uL (160-400); Red Blood Count 4.45 X10*6/uL (4.20-5.50); Red Cell Distribution Width 13.9 % (11.0-16.0)
[2022-09-14 20:02] LABS: Alanine Aminotransferase 26 U/L (0-31); Albumin Level 3.9 g/dL (3.5-5.0); Alkaline Phosphatase 69 U/L (39-117); Anion Gap 14 (12-20); Aspartate Amino Transferase 25 U/L (5-31); Bilirubin Total 0.6 mg/dL (0.0-1.0); Blood Urea Nitrogen 13 mg/dL (9-16); Calcium 8.7 mg/dL (8.4-10.2); Carbon Dioxide 27 mmol/L (22-29); Chloride 105 mmol/L (96-108); Creatinine Clr Calc Pharmacy 55.7; Estimated Glomerular Filt Rate 47; Glucose Random 116 mg/dL (60-115); Lipase 19 U/L (8-78); Magnesium 1.8 mg/dL (1.6-2.6); Potassium 3.5 mmol/L (3.3-5.1); Sodium 142 mmol/L (135-145); Total Protein 6.9 g/dL (6.5-8.0)
[2022-09-14] MEDS: 0.9 % Sodium Chloride 1,000 ML 999 ML IV (20:37)
[2022-09-14 20:38] VITALS: RESP 18
[2022-09-14] MEDS: Morphine Sulfate 2 MG/ML CARTRIDGE IVPUSH (20:38)
[2022-09-14] MEDS: ondansetron HCL 4 MG/2 ML VIAL IVPUSH (20:38)
[2022-09-14 20:44] VITALS: BP 150/75; PULSE 92; RESP 18; O2SAT 96
[2022-09-14 22:41] VITALS: BP 150/71; PULSE 100; TEMP 36.8; O2SAT 96
--- NOTE | 2022-09-14 22:50 | PC.NURSE ---
pt a&o, no sob or chest pain upon discharge. Reviewed discharge instruction with pt. pt verbalized understanding. Notified CALLIE lizarraga.
--- NOTE | 2022-09-14 22:50 | PC.NURSE ---
Patient is being discharged home. doctor made aware of stool not being collected. okay to discharge
== END 2022-09-14 22:54 | disposition home or self-care (01) ==
PROVIDERS: Emergency Provider Internal Medicine; PCP Internal Medicine
DX: K52.9 Noninfective gastroenteritis and colitis, unspecified (principal); Z79.899 Other long term (current) drug therapy; Z87.891 Personal history of nicotine dependence
CPT/HCPCS: 36415; 74176; 80053; 83690; 83735; 85025; 96374; 96375; 99284; J2270; J2405

== ENCOUNTER 2023-01-16 09:00 | Outpatient (REF) | payer MEDICARE, SELFPAY ==
[2023-01-16 11:06] LABS: MANUAL DIFF FLAG NO
[2023-01-16 11:12] LABS: Basophils Absolute Auto 0.1 X10*3/uL (0.0-0.2); Basophils Percent Auto 0.7 % (0-2); Eosinophils Absolute Auto 0.1 X10*3/uL (0.0-0.4); Eosinophils Percent Auto 1.4 % (0-4); Hematocrit 43.3 % (37.0-47.0); Hemoglobin 13.6 g/dl (12.0-16.0); Imm Gran Abs Auto 0.08 X10*3/uL (0.00-0.03); Imm Gran Pct Auto 0.9 % (0.0-0.4); Lymphocytes Absolute Auto 1.2 X10*3/uL (1.2-4.9); Lymphocytes Percent Auto 13.6 % (20-40); Mean Corpuscular HGB Conc 31.4 g/dl (31.0-35.0); Mean Corpuscular Hemoglobin 31.1 pg (27.0-33.0); Mean Corpuscular Volume 98.9 fL (80.0-98.0); Mean Platelet Volume 11.1 fL (9.4-12.3); Monocytes Absolute Auto 0.7 X10*3/uL (0.1-1.2); Monocytes Percent Auto 7.8 % (2-11); Neutrophils Absolute Auto 6.5 x10*3/uL (2.0-8.3); Neutrophils Percent Auto 75.6 % (45-73); Platelet Count 230 X10*3/uL (160-400); Red Blood Count 4.38 X10*6/uL (4.20-5.50); Red Cell Distribution Width 14.5 % (11.0-16.0); White Blood Count 8.5 X10*3/uL (4.8-10.8)
[2023-01-16 11:28] LABS: Estimated Average Glucose 114 mg/dL; Hemoglobin A1c % 5.6 %
[2023-01-16 11:29] LABS: Alanine Aminotransferase 9 U/L (0-31); Anion Gap 14 (12-20); Aspartate Amino Transferase 12 U/L (5-31); Blood Urea Nitrogen 16 mg/dL (9-16); Calcium 9.4 mg/dL (8.4-10.2); Carbon Dioxide 28 mmol/L (22-29); Chloride 106 mmol/L (96-108); Cholesterol 145 mg/dL; Estimated Glomerular Filt Rate 52; Glucose Fasting 131 mg/dL (60-99); HDL Cholesterol 51 mg/dL; LDL Cholesterol Calculated 59 mg/dl; Potassium 4.4 mmol/L (3.3-5.1); Sodium 144 mmol/L (135-145); Triglycerides 176 mg/dL
[2023-01-16 11:44] LABS: Vitamin D 25-OH Total 50.7 ng/mL (>30)
== END 2023-01-16 09:01 | disposition home or self-care (01) ==
LOC: HO.HMGCLDS 09:00
PROVIDERS: PCP Internal Medicine; Visit Provider Internal Medicine
DX: E78.5 Hyperlipidemia, unspecified (principal); I10 Essential (primary) hypertension; I42.9 Cardiomyopathy, unspecified; I48.21 Permanent atrial fibrillation; R73.01 Impaired fasting glucose; Z78.0 Asymptomatic menopausal state
CPT/HCPCS: 36415; 80048; 80061; 82306; 83036; 84450; 84460; 85025

== ENCOUNTER 2023-04-26 12:29 | Outpatient (AMB) | payer MEDICARE, SELFPAY ==
--- NOTE | 2023-04-26 12:32 | MHC.OFFVIS ---
Intake Vital Signs 04/26/23 12:33 Height 5 ft 3 in Weight 280 lb BMI 49.6 BP 120/74 Blood Pressure Location Lt brachial Position Sitting Pulse 88 Intake Visit Reasons: 1 year F/u Intake Note: 1 year follow-up with ekg c/o sob and fatigue [place] Torch Operator Required: No Tungsten Tender: Tungsten Tender Present Accompanied by: Daughter Allergies ciprofloxacin Allergy (Unknown, Verified 01/04/23 13:19) HIVES warfarin [Coumadin] Allergy (Unknown, Verified 01/04/23 13:19) Rash Medication List - Last Reconciled 04/26/23 by Clif Fernandez MD citalopram 10 mg PO DAILY metoprolol succinate ER (Toprol XL) 100 mg PO DAILY pravastatin 40 mg PO BEDTIME rivaroxaban 20 mg PO DAILY HPI HPI Comments History of Present Illness Details Cate comes for follow-up. She is here accompanied by her daughter. She says when she walks he does get elevated heart rate and short of breath. However she then stops an are symptoms resolved. She denies any symptoms with rest. Also denies any symptoms of orthopnea PND. No worsening leg edema. No bleeding issues or neurologic events. She does have lightheaded when she lays down in bed but not when she gets up. She denies any exertional chest pain. [facility] Medical History Afib Bilateral knee pain Depression Dyslipidemia Essential hypertension FH: cholecystectomy Gait instability HTN (hypertension) Impaired fasting glucose Osteoarthritis involving multiple joints on both sides of body Recurrent depressive disorder, currently in remission Surgical History H/O: hysterectomy History of appendectomy Hx of cholecystectomy Family History Father No problems noted. Mother No problems noted. Brother No problems noted. Son Mental health disorder Son No problems noted. Daughter Mental health disorder Daughter No problems noted. Daughter No problems noted. Social History Housing: Apartment Alcohol intake: never Patient Tobacco Use Status: Former Tobacco user Quit Date: 2011 e-Cigarette/Vaping Use: Never Used Current occupational status: retired Cognitive needs: No Hearing needs: No Vision needs: Yes Review of Systems Const Denies chills, Denies fatigue, Denies fever(s), Denies frequent falls, Denies weakness, Denies weight gain and Denies weight loss ENT Denies dizziness Card Denies chest pain, Denies leg edema, Denies lightheadedness, Denies palpitations, Denies dyspnea, Denies dyspnea on exertion, Denies orthopnea and Denies other (loss of consciousness) Resp Denies cough, Denies dyspnea and Denies dyspnea on exertion GI Denies hematochezia and Denies change in stool character Musc Denies abnormal gait, Denies muscle weakness, Denies numbness, Denies radiating pain into limb and Denies tingling Neuro Denies Abnormal speech present, Denies abnormal gait, Denies dizziness, Denies frequent falls, Denies numbness, Denies tingling and Denies weakness Endo Denies fatigue and Denies palpitations Physical Exam Vital Signs: Last Vital Signs Pulse 88 04/26/23 12:33 BP 120/74 04/26/23 12:33 BMI result Body Mass Index 49.6 Const General: cooperative, comfortable, no acute distress, alert and awake Nutritional Appearance: obese Orientation/consciousness: patient oriented x3 Limitations: ambulation with walker HEENT Other: Unremarkable Head: Yes atraumatic Neck Neck: Yes trachea midline, Yes supple and Yes no JVD Resp Effort & Inspection: normal respiratory effort Auscultation: clear to auscultation bilaterally, no crackles and no wheezes Cardio Jugular venous distension: no JVD Rhythm: abnormal rhythm irregularly irregular Heart sounds: S1 normal heart sound present, S2 normal heart sound present, no gallops, no murmurs and no rubs GI Palpation (GI): Soft to palpation Back/Spine/Pelvis Other: unremarkable Skin General skin exam: no rashes or lesions noted Neuro General: patient oriented x3 Cranial nerves: Yes Other cranial nerve findings present Speech: No Abnormal speech present Extrem General: Yes no clubbing, cyanosis or edema Psych Mental Status: other Office Procedures EKG Details: EKG shows atrial fibrillation with QS pattern in lead V1 V2 with heart rate of 88 beats per minute with nonspecific ST changes 25506-[id number], Complete Assessment & Plan Assessment & Plan (1) Permanent atrial fibrillation: Code(s): I48.21 - Permanent atrial fibrillation Plan: Permanent atrial fibrillation with symptoms exertional palpitation shortness of breath most likely related to deconditioning. Pacing at rest heart rate is well controlled. Continue current metoprolol therapy and rate control approach given chronic atrial fibrillation continue full oral anticoagulation, currently on Xarelto 20 mg daily. Quarterly renal function test should be pursued. If creatinine clearance drops below 50 mL/minute should consider switching to 15 mg a day of Xarelto. (2) Cardiomyopathy: Code(s): I42.9 - Cardiomyopathy, unspecified Qualifiers: Cardiomyopathy type: other Qualified Code(s): I42.8 - Other cardiomyopathies Plan: Prior history of cardiomyopathy low normal LVEF with rate control. Currently with no signs or symptoms of heart failure. Continue metoprolol therapy for rate control as well as neurohormonal modulation. Blood pressure is currently well optimized. Advised to monitor blood pressure at home maintain a log. Goal blood pressure less than 130/84. Will follow up in the clinic in 1 year's time, sooner p.r.n.. Thank you for allowing me to partake in the care Medications: Refilled rivaroxaban 20 mg PO DAILY 90 tabs 3RF I48.91 - Unspecified atrial fibrillation Coding Level of Care Code Est Pt Level 4 (24994) Diagnoses Permanent atrial fibrillation I48.21 Cardiomyopathy I42.8 Cardiomyopathy type: other CPT Codes EKG - CPT: 51696-[id number], Complete ([id number])
[2023-04-26 12:33] VITALS: BP 120/74; PULSE 88; BMI 49.6
== END 2023-04-26 12:53 | disposition home or self-care (01) ==
PROVIDERS: Visit Provider Internal Medicine Cardiovascular Disease
DX: I48.21 Permanent atrial fibrillation (principal); I42.8 Other cardiomyopathies
CPT/HCPCS: 93010; 99214

== ENCOUNTER → 2023-04-26 12:29 | Outpatient (BNVA) | payer MEDICARE, SELFPAY | PROVIDERS: Visit Provider Internal Medicine Cardiovascular Disease | DX: I48.21 Permanent atrial fibrillation (principal); I42.8 Other cardiomyopathies; I10 Essential (primary) hypertension; E66.9 Obesity, unspecified; Z68.42 Body mass index [BMI] 45.0-49.9, adult | CPT/HCPCS: 93005; 99212 ==

== ENCOUNTER 2023-06-21 09:15 | Outpatient (REF) | payer MEDICARE, SELFPAY ==
[2023-06-21 12:17] LABS: Estimated Average Glucose 111 mg/dL; Hemoglobin A1c % 5.5 % (<6.0)
[2023-06-21 12:37] LABS: Alanine Aminotransferase 7 U/L (0-31); Anion Gap 18 (12-20); Aspartate Amino Transferase 14 U/L (5-31); Blood Urea Nitrogen 15 mg/dL (9-16); Calcium 9.7 mg/dL (8.4-10.2); Carbon Dioxide 25 mmol/L (22-29); Chloride 103 mmol/L (96-108); Cholesterol 143 mg/dL (<200); Estimated Glomerular Filt Rate 58; Glucose Fasting 121 mg/dL (60-99); HDL Cholesterol 55 mg/dL (>40); LDL Cholesterol Calculated 54 mg/dL (<100); Potassium 4.3 mmol/L (3.3-5.1); Sodium 142 mmol/L (135-145); Triglycerides 172 mg/dL (<150)
== END 2023-06-21 09:16 | disposition home or self-care (01) ==
LOC: HO.HMGCLDS 09:15
PROVIDERS: PCP Internal Medicine; Visit Provider Internal Medicine
DX: I48.21 Permanent atrial fibrillation (principal); R73.01 Impaired fasting glucose; E78.5 Hyperlipidemia, unspecified; I10 Essential (primary) hypertension
CPT/HCPCS: 36415; 80048; 80061; 83036; 84450; 84460

== ENCOUNTER 2023-06-29 12:50 | Outpatient (AMB) | payer MEDICARE, SELFPAY ==
[2023-06-29 13:31] VITALS: BP 134/76; PULSE 92; O2SAT 97; BMI 50.1
--- NOTE | 2023-06-29 13:31 | MHC.PC.OV ---
Vital Signs 06/29/23 13:31 Height 5 ft 3 in Weight 283 lb BMI 50.1 BP 134/76 Blood Pressure Location Lt brachial Position Sitting Pulse 92 Pulse Source Pulse Oximeter Pulse Oximetry (%) 97 Oxygen Delivery Method Room Air Intake Visit Reasons: 6 month follow up ffup lipids, ifg, depression Intake Note: patient is here today for her 6 mo. f/u lipids, ifg, depression Allergies ciprofloxacin Allergy (Unknown, Verified 02/29/24 17:22) HIVES warfarin [Coumadin] Allergy (Unknown, Verified 02/29/24 17:22) Rash Medication List - Last Reconciled 02/29/24 by Johana Solano MD amoxicillin-pot clavulanate 875-125 mg 1 tab PO Q12H 10 days citalopram 10 mg PO DAILY metoprolol succinate ER (Toprol XL) 100 mg PO DAILY pravastatin 40 mg PO BEDTIME rivaroxaban 20 mg PO DAILY Tobacco use date assessed: 06/29/23 Fall risk assessment: No Falls in past year Last assessed Fall Risk: 06/29/23 Dental Screening Dental Screen Date: 06/29/23 Did you have a dental visit in the last 12 months?: No Did you have a dental problem in the last 6 months where you did not have access to dental care?: No Was dental information given to patient?: Patient declined HPI 6 month follow up ffup lipids, ifg, depression HPI Details 83-year-old lady with hypertension, hyperlipidemia, and depression, here today for follow-up. She has been feeling well, with no complaints at present time. Blood pressure controlled on present treatment. Recent fasting labs showed lipids within normal. Depression stable and controlled on present treatment. Complains of a painful lump in vaginal area. [facility] Medical History (Updated 06/29/23 @ 13:53 by Johana Solano MD) Abscess of Bartholin's gland Gait instability Osteoarthritis involving multiple joints on both sides of body Bilateral knee pain Recurrent depressive disorder, currently in remission Impaired fasting glucose Depression Essential hypertension Dyslipidemia FH: cholecystectomy Afib HTN (hypertension) Surgical History Hx of cholecystectomy H/O: hysterectomy History of appendectomy Family History Father No problems noted. Mother No problems noted. Brother No problems noted. Son Mental health disorder Son No problems noted. Daughter Mental health disorder Daughter No problems noted. Daughter No problems noted. Social History Housing: Apartment Alcohol intake: never Patient Tobacco Use Status: Former Tobacco user e-Cigarette/Vaping Use: Never Used Current occupational status: retired Cognitive needs: No Hearing needs: No Vision needs: Yes Questionnaire PHQ-9 Over the last 2 weeks, how often have you been bothered by any of the following problems? 1. Little interest or pleasure in doing things: not at all 2. Feeling down, depressed, or hopeless: not at all 3. Trouble falling or staying asleep, or sleeping too much: not at all 4. Feeling tired or having little energy: nearly every day 5. Poor appetite or overeating: not at all 6. Feeling bad about yourself - or that you are a failure or have let yourself or your family down: not at all 7. Trouble concentrating on things, such as reading the newspaper or watching television: not at all 8. Moving or speaking so slowly that other people could have noticed. Or the opposite - being so fidgety or restless that you have been moving around a lot more than usual: several days 9. Thoughts that you would be better off or of hurting yourself in some way: not at all Total score: 4 Depression Screening Interpretation: Negative Depression Screening Done: Yes 54620 - PHQ-9 Billing: Yes Source: Developed by Drs. Ck Mcgee, Lamonte Cantor and colleagues, with an educational opal from [employer]. Thrive Questionnaire Date Thrive assessed: 01/04/23 AUDIT C Alcohol Use Questionnaire (AUDIT-C) 1. How often do you have a drink containing alcohol?: Never Total Score: 0 CHELY-7 AMB Questionnaire CHELY-7 Date CHELY - 7 assessed: 01/04/23 Source: Developed by Drs. Ck Mcgee, Lamonte Cantor and colleagues, with an educational opal from [employer]. Review of Systems Const Denies chills, Denies fatigue, Denies fever(s), Denies frequent falls and Denies weakness Eyes Denies change in vision ENT Denies dizziness Card Denies chest pain, Denies leg edema, Denies lightheadedness, Denies palpitations and Denies dyspnea Resp Denies cough and Denies dyspnea GI Denies hematochezia and Denies change in stool character Reports as per HPI Musc Denies abnormal gait, Denies muscle weakness, Denies numbness, Denies radiating pain into limb and Denies tingling Neuro Denies Abnormal speech present, Denies abnormal gait, Denies dizziness, Denies frequent falls, Denies numbness, Denies tingling and Denies weakness Psych Reports as per HPI Endo Denies fatigue and Denies palpitations Driss/Lymph Reports no additional complaints Physical exam (Primary Care) Vital Signs: Last Vital Signs Pulse 92 06/29/23 13:31 BP 134/76 06/29/23 13:31 Pulse Ox 97 06/29/23 13:31 Oxygen Delivery Method Room Air 06/29/23 13:31 BMI result Body Mass Index 50.1 Tobacco/Smoking Status: Tobacco use Status Tobacco use date assessed 06/29/23 06/29/23 13:34 Patient Tobacco Use Status Former Tobacco user 06/29/23 13:34 e-Cigarette/Vaping Use Never Used 06/29/23 13:34 Depression Screening Interpretation: Negative Thrive Assessment: Date of Thrive Assessment Date Thrive assessed 01/04/23 06/29/23 13:34 Const Other: Alert oriented x3, ambulatory the with assistance of a walker, daughter present in room General: no acute distress Nutritional Appearance: obese Orientation/consciousness: patient oriented x3 [facility] Head: Yes normocephalic and Yes atraumatic Face and sinus: Yes face symmetric Mouth: Normal oral and palatal mucosa present, oropharynx normal and moist mucous membranes Eyes General: appearance normal, both eyes and all related structures Neck Neck: Yes full ROM, Yes no lymphadenopathy and Yes supple Resp Effort & Inspection: normal respiratory effort and able to speak in complete sentences Auscultation: clear to auscultation bilaterally Cardio Other: Irregularly irregular rhythm GI Inspection: Yes obesity Palpation (GI): Soft to palpation, nontender, no guarding and no masses Auscultation: normal bowel sounds External Female Exam: lesion (Tender nodular mass on side of vaginal introitus) Skin General skin exam: no rashes or lesions noted Neuro General: patient oriented x3, Normal light touch and pain sensation, no focal motor deficits and CN's II-XI intact bilaterally Cognition (Neuro): normal cognition Speech: No Abnormal speech present Gait exam (Neuro): Assisted gait required Gait assisted method: walker Extrem General: Yes full ROM, Yes no calf tenderness, Yes edema and Yes pedal edema Psych Appearance: grossly normal and well kempt Mental Status: mental status grossly normal Speech and movement: Normal speech and movement present Affect: normal affect Thought process: Normal thought process present Results Reviewed Results Reviewed: NTERED: 06/21/[address] [facility] DR: ORDERED: Met Prof Fast, AST, ALT, Lipid Panel Test Result Flag Reference Site Sodium 142 135-145 mmol/L Potassium 4.3 3.3-5.1 mmol/L CL 103 96-108 mmol/L CO2 25 22-29 mmol/L Gap 18 12-20 BUN 15 9-16 mg/dL Creat 0.93 0.5-1.4 mg/dL EGFR 58 NOTE: For -[place] individuals, multiply the result by 1.210. Chronic Kidney Disease: Estimated GFR < 60 mL/min/1.73m2 Severe Kidney Disease: Estimated GFR < 15 mL/min/1.73m2 FBS 121 H 60-99 mg/dL A fasting glucose from 100-125 mg/dl is considered impaired (pre-diabetes). CA 9.7 8.4-10.2 mg/dL AST (GOT) 14 5-31 U/L ALT (GPT) 7 0-31 U/L Triglyceride 172 H <150 mg/dL Desirable Triglyceride: less than 150 mg/dL Borderline High Triglyceride 150-199 mg/dL High Triglyceride: 200-499 mg/dL Very High Triglyceride: greater than or equal to 5OO mg/dL Cholesterol 143 <200 mg/dL Desirable Cholesterol: less than 200 mg/dL Borderline High Cholesterol: 200-239 mg/dL High Cholesterol: greater than 239 mg/dL LDL Calculated 54 <100 mg/dL Desirable LDL: less than 100 mg/dL Near Optimal/Above Optimal LDL: 110-129 mg/dL Borderline High LDL: 130-159 mg/dL High LDL: 160-189 mg/dL Very High LDL: greater than or equal to 190 mg/dL HDL 55 >40 mg/dL Desirable HDL: greater than 40 mg/dL Note: This HDL assay may give artificially low results in patients with liver disease. Assessment and Plan Assessment & Plan (1) Abscess of Bartholin's gland: Code(s): N75.1 - Abscess of Bartholin's gland Plan: OBGYN referral ordered. Prescription sent for Augmentin 875 mg to take 1 tablet every 12 hours for 10 days (2) Recurrent depressive disorder, currently in remission: Code(s): F33.40 - Major depressive disorder, recurrent, in remission, unspecified Plan: Continue with citalopram 10 mg daily (3) Impaired fasting glucose: Code(s): R73.01 - Impaired fasting glucose Plan: Your fasting blood sugar is elevated above 100 mg/dL. Impaired glucose metabolism increases the risk for developing diabetes mellitus type 2, as well as heart attack and stroke later on. Lifestyle changes, weight loss, healthy eating habits, and regular exercise are important, and can prevent the progression to diabetes (4) Essential hypertension: Code(s): I10 - Essential (primary) hypertension Plan: Blood pressure at goal of less than 130/80. Continue with current medication. Reinforced importance of following a low sodium diet, getting regular exercise, and lowering stress levels. (5) Dyslipidemia: Code(s): E78.5 - Hyperlipidemia, unspecified Plan: Recent Fasting lipid panel are within normal limits, continued on pravastatin 40 mg at bedtime Orders: Orders Hemoglobin A1c 12/20/23 F33.40 - Major depressive disorder, recurrent, in remission, unspecified, R73.01 - Impaired fasting glucose, I10 - Essential (primary) hypertension, E78.5 - Hyperlipidemia, unspecified Alanine Aminotransferase 12/20/23 F33.40 - Major depressive disorder, recurrent, in remission, unspecified, R73.01 - Impaired fasting glucose, I10 - Essential (primary) hypertension, E78.5 - Hyperlipidemia, unspecified Lipid Panel 12/20/23 F33.40 - Major depressive disorder, recurrent, in remission, unspecified, R73.01 - Impaired fasting glucose, I10 - Essential (primary) hypertension, E78.5 - Hyperlipidemia, unspecified Aspartate Amino Transferase 12/20/23 F33.40 - Major depressive disorder, recurrent, in remission, unspecified, R73.01 - Impaired fasting glucose, I10 - Essential (primary) hypertension, E78.5 - Hyperlipidemia, unspecified Basic Metabolic Panel Fasting 12/20/23 F33.40 - Major depressive disorder, recurrent, in remission, unspecified, R73.01 - Impaired fasting glucose, I10 - Essential (primary) hypertension, E78.5 - Hyperlipidemia, unspecified Vitamin D 25-OH Total 12/20/23 F33.40 - Major depressive disorder, recurrent, in remission, unspecified, R73.01 - Impaired fasting glucose, I10 - Essential (primary) hypertension, E78.5 - Hyperlipidemia, unspecified Referrals [employer] Referral N75.1 - Abscess of Bartholin's gland Medications: New amoxicillin-pot clavulanate 875-125 mg 1 tab PO Q12H 20 tabs 0RF 10 days Refilled pravastatin 40 mg PO BEDTIME 90 tabs 3RF citalopram 10 mg PO DAILY 90 tabs 3RF F32.9 - Major depressive disorder, single episode, unspecified Coding Level of Care Code Est Pt Level 4 (50615) Complex EM visit Add On G2211 Diagnoses Abscess of Bartholin's gland N75.1 Recurrent depressive disorder, currently in remission F33.40 Impaired fasting glucose R73.01 Essential hypertension I10 Dyslipidemia E78.5
== END 2023-06-29 14:05 | disposition home or self-care (01) ==
PROVIDERS: Visit Provider Internal Medicine
DX: N75.1 Abscess of Bartholin's gland (principal); F33.40 Major depressive disorder, recurrent, in remission, unspecified; R73.01 Impaired fasting glucose; I10 Essential (primary) hypertension; E78.5 Hyperlipidemia, unspecified
CPT/HCPCS: 99214; G2211

== ENCOUNTER 2023-12-21 09:17 | Outpatient (REF) | payer MEDICARE, SELFPAY ==
[2023-12-21 11:54] LABS: Estimated Average Glucose 120 mg/dL; Hemoglobin A1c % 5.8 % (<6.0)
[2023-12-21 13:02] LABS: Alanine Aminotransferase 11 U/L (0-31); Anion Gap 14 (12-20); Aspartate Amino Transferase 15 U/L (5-31); Blood Urea Nitrogen 14 mg/dL (9-16); Calcium 9.7 mg/dL (8.4-10.2); Carbon Dioxide 28 mmol/L (22-29); Chloride 105 mmol/L (96-108); Cholesterol 134 mg/dL (<200); Estimated Glomerular Filt Rate 59; Glucose Fasting 126 mg/dL (60-99); HDL Cholesterol 56 mg/dL (>40); LDL Cholesterol Calculated 43 mg/dL (<100); Potassium 4.3 mmol/L (3.3-5.1); Sodium 143 mmol/L (135-145); Triglycerides 177 mg/dL (<150)
[2023-12-21 13:24] LABS: Vitamin D 25-OH Total 27.6 ng/mL (>30)
== END 2023-12-21 09:18 | disposition home or self-care (01) ==
LOC: HO.HMGCLDS 09:17
PROVIDERS: PCP Internal Medicine; Visit Provider Internal Medicine
DX: F33.40 Major depressive disorder, recurrent, in remission, unspecified (principal); R73.01 Impaired fasting glucose; I10 Essential (primary) hypertension; E78.5 Hyperlipidemia, unspecified
CPT/HCPCS: 36415; 80048; 80061; 82306; 83036; 84450; 84460

== ENCOUNTER 2024-05-09 10:56 | Outpatient (AMB) | payer MEDICARE, SELFPAY ==
[2024-05-09 10:57] VITALS: BP 126/72; PULSE 75; BMI 48.4
--- NOTE | 2024-05-09 10:57 | A.OFFVIS_ITS ---
Vital Signs 05/09/24 10:57 Height 5 ft 3 in Weight 273 lb 5.971 oz BMI 48.4 BP 126/72 Blood Pressure Location Lt brachial Position Sitting Pulse 75 Intake Visit Reasons: r/s 04/27/24 1 year followup w/ekg Intake Note: 1 year follow-up with ekg c/o some heart racing and sob [employer] Required: No Allergies ciprofloxacin Allergy (Unknown, Verified 02/29/24 17:22) HIVES warfarin [Coumadin] Allergy (Unknown, Verified 02/29/24 17:22) Rash Medication List - Last Reconciled 05/09/24 by Clif Fernandez MD citalopram 10 mg PO DAILY metoprolol succinate ER (Toprol XL) 100 mg PO DAILY pravastatin 40 mg PO BEDTIME rivaroxaban 20 mg PO DAILY HPI Comments Details: Cate comes for follow-up. No obvious cardiac symptoms. Denies any orthopnea, PND, leg edema. Denies any prolonged palpitation irregular heartbeat. No exertional chest pain. No lightheadedness, syncope. Limited exercise activity and can not walk without a walker due to balance issues. REPLACED BY [facility] Medical History Abscess of Bartholin's gland Gait instability Osteoarthritis involving multiple joints on both sides of body Bilateral knee pain Recurrent depressive disorder, currently in remission Impaired fasting glucose Depression Essential hypertension Dyslipidemia FH: cholecystectomy Afib HTN (hypertension) Surgical History Hx of cholecystectomy H/O: hysterectomy History of appendectomy Family History Father No problems noted. Mother No problems noted. Brother No problems noted. Son Mental health disorder Son No problems noted. Daughter Mental health disorder Daughter No problems noted. Daughter No problems noted. Social History Housing: Apartment Alcohol intake: never Patient Tobacco Use Status: Former Tobacco user e-Cigarette/Vaping Use: Never Used Current occupational status: retired Cognitive needs: No Hearing needs: No Vision needs: Yes Review of Systems Const Denies chills, Denies fatigue, Denies fever(s), Denies frequent falls, Denies weakness, Denies weight gain and Denies weight loss ENT Denies dizziness Card Denies chest pain, Denies leg edema, Reports lightheadedness, Reports palpitations, Reports dyspnea, Reports dyspnea on exertion, Denies orthopnea and Denies other (loss of consciousness) Resp Denies cough, Reports dyspnea and Reports dyspnea on exertion GI Denies hematochezia and Denies change in stool character Musc Denies abnormal gait, Denies muscle weakness, Denies numbness, Denies radiating pain into limb and Denies tingling Neuro Denies Abnormal speech present, Denies abnormal gait, Denies dizziness, Denies frequent falls, Denies numbness, Denies tingling and Denies weakness Endo Denies fatigue and Reports palpitations Physical Exam Vital Signs: Last Vital Signs Pulse 75 05/09/24 10:57 BP 126/72 05/09/24 10:57 BMI result Body Mass Index 48.4 Const General: cooperative, comfortable, no acute distress, alert and awake Nutritional Appearance: obese Orientation/consciousness: patient oriented x3 Limitations: ambulation with walker HEENT Other: Unremarkable Head: Yes atraumatic Neck Neck: Yes trachea midline, Yes supple and Yes no JVD Resp Effort & Inspection: normal respiratory effort Auscultation: clear to auscultation bilaterally, no crackles and no wheezes Cardio Jugular venous distension: no JVD Rhythm: abnormal rhythm irregularly irregular Heart sounds: S1 normal heart sound present, S2 normal heart sound present, no gallops, no murmurs and no rubs GI Palpation (GI): Soft to palpation Back/Spine/Pelvis Other: unremarkable Skin General skin exam: no rashes or lesions noted Neuro General: patient oriented x3 Cranial nerves: Yes Other cranial nerve findings present Speech: No Abnormal speech present Extrem General: Yes no clubbing, cyanosis or edema Psych Mental Status: other Office Procedures EKG Details: EKG shows atrial fibrillation with poor R-wave progression most likely due to lead placement [id number], Complete Assessment & Plan Assessment & Plan (1) Permanent atrial fibrillation: Code(s): I48.21 - Permanent atrial fibrillation Category: Medical Plan: Permanent atrial fibrillation, long-lasting with atrial changes unlikely to pursue rhythm control approach. Rate is adequately control without any signs of cardiac decompensation. Continue current metoprolol therapy. Continue full oral anticoagulation with Xarelto. Semi annual renal function test to be pursued. Annual CBC should be checked. (2) Cardiomyopathy: Code(s): I42.9 - Cardiomyopathy, unspecified Category: Medical Qualifiers: Cardiomyopathy type: other Qualified Code(s): I42.8 - Other cardiomyopathies Plan: Prior history of cardiomyopathy low normal LVEF. Will follow-up echocardiogram next year. Continue neurohormonal modulation metoprolol and adequate rate control which has helped with improvement in her overall heart pump function. No signs or symptoms of clinical heart failure at this point time. Likely to developed that in the future. This was discussed with her. Follow up in the clinic in 1 year's time, sooner p.r.n.. Thank you for allowing me to partake in his care Orders: Orders CA echo transthoracic complete 11 Months I42.8 - Other cardiomyopathies Coding Level of Care Code Est Pt Level 4 (47993) Diagnoses Permanent atrial fibrillation I48.21 Other cardiomyopathy I42.8 Cardiomyopathy type: other CPT Codes EKG - CPT: [id number], Complete ([id number])
== END 2024-05-09 11:26 | disposition home or self-care (01) ==
PROVIDERS: PCP Internal Medicine; Visit Provider Internal Medicine Cardiovascular Disease
DX: I48.21 Permanent atrial fibrillation (principal); I42.8 Other cardiomyopathies
CPT/HCPCS: 93010; 99214

== ENCOUNTER → 2024-05-09 10:56 | Outpatient (BNVA) | payer MEDICARE, SELFPAY | PROVIDERS: PCP Internal Medicine; Visit Provider Internal Medicine Cardiovascular Disease | DX: I48.21 Permanent atrial fibrillation (principal); I42.8 Other cardiomyopathies | CPT/HCPCS: 93005; 99212 ==

== ENCOUNTER 2024-07-07 09:21 | Outpatient (REF) | payer MEDICARE, SELFPAY ==
[2024-07-07 10:26] LABS: Hematocrit 44.3 % (37.0-47.0); Hemoglobin 13.8 g/dl (12.0-16.0)
[2024-07-07 10:57] LABS: Estimated Average Glucose 114 mg/dL; Hemoglobin A1C 149.7832 umol/L; Hemoglobin A1c % 5.6 % (<6.0); Total Hemoglobin (HGBA1C) 4027.2933 umol/L
[2024-07-07 11:19] LABS: Alanine Aminotransferase 10 U/L (0-31); Anion Gap 13 (12-20); Aspartate Amino Transferase 14 U/L (5-31); Blood Urea Nitrogen 20 mg/dL (9-16); Calcium 9.9 mg/dL (8.4-10.2); Carbon Dioxide 30 mmol/L (22-29); Chloride 103 mmol/L (96-108); Cholesterol 156 mg/dL (<200); Estimated Glomerular Filt Rate 52; Glucose Fasting 113 mg/dL (60-99); HDL Cholesterol 52 mg/dL (>40); LDL Cholesterol Calculated 69 mg/dL (<100); Potassium 4.6 mmol/L (3.3-5.1); Sodium 141 mmol/L (135-145); Triglycerides 177 mg/dL (<150)
[2024-07-07 11:23] LABS: Vitamin D 25-OH Total 47.8 ng/mL (>30)
== END 2024-07-07 09:22 | disposition home or self-care (01) ==
LOC: HO.HMGCLDS 09:21
PROVIDERS: PCP Internal Medicine; Visit Provider Internal Medicine
DX: R26.81 Unsteadiness on feet (principal); I42.8 Other cardiomyopathies; I48.21 Permanent atrial fibrillation; R73.01 Impaired fasting glucose; I10 Essential (primary) hypertension; E78.5 Hyperlipidemia, unspecified
CPT/HCPCS: 36415; 80048; 80061; 82306; 83036; 84450; 84460; 85014; 85018

== ENCOUNTER 2024-07-11 09:58 | Outpatient (AMB) | payer MEDICARE, SELFPAY ==
--- NOTE | 2024-07-11 10:29 | A.OFFPC_ITS ---
Vital Signs 07/11/24 10:30 Height 5 ft 3 in Weight 280 lb BMI 49.6 BP 126/80 Blood Pressure Location Lt radial Position Sitting Pulse 81 Pulse Source Pulse Oximeter Pulse Oximetry (%) 97 Oxygen Delivery Method Room Air Intake Visit Reasons: f/u labs -R/S missed appt 01/31 - see comment Intake Note: Pt is here today for her f/u lab results Allergies ciprofloxacin Allergy (Unknown, Verified 07/17/24 03:38) HIVES warfarin [Coumadin] Allergy (Unknown, Verified 07/17/24 03:38) Rash Medication List - Last Reconciled 07/17/24 by Johana Solano MD citalopram 20 mg PO DAILY metoprolol succinate ER (Toprol XL) 100 mg PO DAILY pravastatin 40 mg PO BEDTIME rivaroxaban 20 mg PO DAILY Tobacco use date assessed: 07/11/24 Fall risk assessment: No Falls in past year Last assessed Fall Risk: 07/11/24 Dental Screening Dental Screen Date: 07/11/24 Did you have a dental visit in the last 12 months?: No Did you have a dental problem in the last 6 months where you did not have access to dental care?: No Was dental information given to patient?: No HPI f/u labs -R/S missed appt 01/31 - see comment HPI Details 83-year-old lady with hypertension, hype rlipidemia, and depression, here today for follow-up. She has been compliant with taking her medications. Had recent fasting labs done which showed electrolytes within normal limits, elevated fasting glucose in the prediabetic range but normal hemoglobin A1c, lipids are within normal limits as well as liver enzymes. Complains of intermittent pain in both knees with no history of trauma, accompanied by stiffness . She also has been experiencing more d epression lately, with low mood, despite taking citalopram 10 mg daily. Denies any triggers, no problems with family. [facility] Medical History (Updated 07/11/24 @ 11:10 by Johana Solano MD) Abscess of Bartholin's gland Gait instability Osteoarthritis involving multiple joints on both sides of body Bilateral knee pain Recurrent depressive disorder, currently in remission Impaired fasting glucose Depression Essential hypertension Dyslipidemia FH: cholecystectomy Afib HTN (hypertension) Surgical History Hx of cholecystectomy H/O: hysterectomy History of appendectomy Family History Father No problems noted. Mother No problems noted. Brother No problems noted. Son Mental health disorder Son No problems noted. Daughter Mental health disorder Daughter No problems noted. Daughter No problems noted. Social History Housing: Apartment Alcohol intake: never Patient Tobacco Use Status: Former Tobacco user e-Cigarette/Vaping Use: Never Used Current occupational status: retired Cognitive needs: No Hearing needs: No Vision needs: Yes Questionnaire PHQ-9 Over the last 2 weeks, how often have you been bothered by any of the following problems? 1. Little interest or pleasure in doing things: several days 2. Feeling down, depressed, or hopeless: several days 3. Trouble falling or staying asleep, or sleeping too much: several days 4. Feeling tired or having little energy: nearly every day 5. Poor appetite or overeating: not at all 6. Feeling bad about yourself - or that you are a failure or have let yourself or your family down: not at all 7. Trouble concentrating on things, such as reading the newspaper or watching television: not at all 8. Moving or speaking so slowly that other people could have noticed. Or the opposite - being so fidgety or restless that you have been moving around a lot more than usual: several days 9. Thoughts that you would be better off or of hurting yourself in some way: not at all Total score: 7 Depression Screening Interpretation: Positive Depression Screening Follow-up: Existing condition, In treatment and Follow-up Visit Requested Depression Screening Done: Yes 36040 - PHQ-9 Billing: Yes Source: Developed by Drs. Ck Mcgee, Sruthi Walker, Lamonte Morales and colleagues, with an educational opal from [employer]. Thrive Questionnaire Date Thrive assessed: 07/11/24 I am a: Patient What is your living situation today?: I have a steady place to live Within the past 12 months, did the food you bought not last and you didn't have the money to get more?: Never true Within the past 12 months, did you worry whether your food would run out before you got money to buy more?: Never true Do you have trouble paying for medicines?: No Do you have trouble getting transportation to medical appointments?: No Do you have trouble paying your heating and electricity bill?: No Do you have trouble taking care of your child, family member or friend?: No Do you have trouble with day-to-day activities such as bathing, preparing meals, shopping, managing finances, etc.?: No Are you interested in more education?: No Please select the resources that you would like help with: None Currently or been in a relationship where the following occur: No concerns rep orted THRIVE Score: 0 AUDIT C Alcohol Use Questionnaire (AUDIT-C) 1. How often do you have a drink containing alcohol?: Never Total Score: 0 CHELY-7 AMB Questionnaire CHELY-7 Date CHELY - 7 assessed: 07/11/24 Feeling nervous, anxious, or on edge: 0 = Not at all Not being able to stop or control worryin = Not at all Worrying too much about different things: 0 = Not at all Trouble relaxin = Not at all Being so restless that it is hard to sit still: 0 = Not at all Becoming easily annoyed or irritable: 0 = Not at all Feeling afraid as if something awful might happen: 0 = Not at all Total CHELY-7 score (0-4 normal; 5-9 mild; 10-14 moderate; 15-21 severe): 0 Source: Developed by Drs. Ck Mcgee, Sruthi Walker, Lamonte Morales and colleagues, with an educational opal from [employer]. CHELY-7 Assessment Billing CHELY-7 Assessment Tool: CHELY-7 Assessment 23553 Review of Systems Const Denies chills, Denies fatigue, Denies fever(s), Denies frequent falls, Denies weakness, Denies weight gain and Denies weight loss Eyes Reports no additional complaints ENT Denies dizziness Card Denies chest pain, Denies leg edema, Reports lightheadedness, Reports palpitations, Reports dyspnea and Reports dyspnea on exertion Resp Denies cough, Reports dyspnea and Reports dyspnea on exertion GI Denies hematochezia and Denies change in stool character Musc Denies abnormal gait, Denies muscle weakness, Denies numbness, Denies radiating pain into limb and Denies tingling Neuro Denies Abnormal speech present, Denies abnormal gait, Denies dizziness, Denies frequent falls, Denies numbness, Denies tingling and Denies weakness Psych Reports as per HPI Endo Denies fatigue and Reports palpitations Driss/Lymph Denies easy bleeding and Denies easy bruising Physical exam (Primary Care) Vital Signs: Last Vital Signs Pulse 81 07/11/24 10:30 BP 126/80 07/11/24 10:30 Pulse Ox 97 07/11/24 10:30 Oxygen Delivery Method Room Air 07/11/24 10:30 BMI result Body Mass Index 49.6 Tobacco/Smoking Status: Tobacco use Status Tobacco use date assessed 07/11/24 07/11/24 10:33 Patient Tobacco Use Status Former Tobacco user 07/11/24 10:33 e-Cigarette/Vaping Use Never Used 07/11/24 10:33 Depression Screening Interpretation: Positive Depression Screening Follow-up: Existing condition, In treatment and Follow-up Visit Requested Thrive Assessment: Date of Thrive Assessment Date Thrive assessed 07/11/24 07/11/24 10:33 Currently or been in a relationship where the following occur: No concerns reported Const Other: Alert oriented x3, ambulatory the with assistance of a walker, daughter present in room General: no acute distress Nutritional Appearance: obese Orientation/consciousness: patient oriented x3 HENMT Head: Yes normocephalic Face and sinus: Yes face symmetric Mouth: Normal oral and palatal mucosa present, oropharynx normal and moist mucous membranes Eyes General: appearance normal, both eyes and all related structures Neck Neck: Yes full ROM, Yes no lymphadenopathy and Yes supple Resp Effort & Inspection: normal respiratory effort and able to speak in complete sentences Auscultation: clear to auscultation bilaterally Cardio Other: Irregularly irregular rhythm GI Inspection: Yes obesity Palpation (GI): Soft to palpation, nontender, no guarding and no masses Auscultation: normal bowel sounds Skin General skin exam: no rashes or lesions noted Neuro General: patient oriented x3, Normal light touch and pain sensation, no focal motor deficits and CN's II-XI intact bilaterally Cognition (Neuro): normal cognition Speech: No Abnormal speech present Gait exam (Neuro): Assisted gait required Gait assisted method: walker Extrem General: Yes full ROM, Yes no calf tenderness, Yes edema and Yes pedal edema Psych Appearance: grossly normal and well kempt Mental Status: mental status grossly normal Speech and movement: Normal speech and movement present Affect: normal affect Thought process: Normal thought process present Results Reviewed Results Reviewed: Laboratory Tests 07/07/24 09:25 Hgb 13.8 Hct 44.3 Estimat Average Glucose 114 Hemoglobin A1c % 5.6 Name: Cate Parker Age/Sex: 83/F : 1940 Unit#: [id number] Attend Dr: Johana Solano MD Re07/07/24 Status: DEP [facility]F [facility] Disch: SPEC : [id number] CHRISTOPHE: 07/07/24 STATUS: COMP REQ : [id number] RECD: 07/07/[address]: Johana Solano MD COMP: 07/07/24 ENTERED: 07/07/[address] [facility]: ORDERED: Met Prof Fast, AST, ALT, Lipid Panel, Vitamin D 25-OH Test Result Flag Reference Sodium 141 135-145 mmol/L Potassium 4.6 3.3-5.1 mmol/L CL 103 96-108 mmol/L CO2 30 H 22-29 mmol/L Gap 13 12-20 BUN 20 H 9-16 mg/dL Creat 1.02 0.5-1.4 mg/dL EGFR 52 NOTE: For -Vincentian individuals, multiply the result by 1.210. Chronic Kidney Disease: Estimated GFR < 60 mL/min/1.73m2 Severe Kidney Disease: Estimated GFR < 15 mL/min/1.73m2 FBS 113 H 60-99 mg/dL A fasting glucose from 100-125 mg/dl is considered impaired (pre-diabetes). CA 9.9 8.4-10.2 mg/dL AST (GOT) 14 5-31 U/L ALT (GPT) 10 0-31 U/L Triglyceride 177 H <150 mg/dL Desirable Triglyceride: less than 150 mg/dL Borderline High Triglyceride 150-199 mg/dL High Triglyceride: 200-499 mg/dL Very High Triglyceride: greater than or equal to 5OO mg/dL Cholesterol 156 <200 mg/dL Desirable Cholesterol: less than 200 mg/dL Borderline High Cholesterol: 200-239 mg/dL High Cholesterol: greater than 239 mg/dL LDL Calculated 69 <100 mg/dL Desirable LDL: less than 100 mg/dL Near Optimal/Above Optimal LDL: 110-129 mg/dL Borderline High LDL: 130-159 mg/dL High LDL: 160-189 mg/dL Very High LDL: greater than or equal to 190 mg/dL HDL 52 >40 mg/dL Desirable HDL: greater than 40 mg/dL Note: This HDL assay may give artificially low results in patients with liver disease. Vit D 25-OH Tot 47.8 >30 ng/mL Health Based Reference Values* < 20 ng/mL Deficient 20-30 ng/mL Insufficient > 30 ng/mL Sufficient Coding Level of Care Code Est Pt Level 4 (79352) Complex EM visit Add On G2211 Diagnoses Bilateral knee pain M25.561; M25.562 Recurrent depressive disorder, currently in remission F33.40 Essential hypertension I10 Dyslipidemia E78.5 Additional Codes CHELY-7 Assessment Billing - CHELY-7 Assessment Tool: CHELY-7 Assessment 19518 ([id number]) Assessment & Plan Assessment & Plan (1) Bilateral knee pain: Code(s): M25.561 - Pain in right knee; M25.562 - Pain in left knee Category: Medical Plan: Advised to stop taking ibuprofen 3 tablets at night as she is already taking Xarelto, may take Tylenol 650 mg 1-2 tablets twice a day and try massaging diclofenac gel 1% to affected knee joints 2 to 3 times a day as needed for pain control (2) Recurrent depressive disorder, currently in remission: Code(s): F33.40 - Major depressive disorder, recurrent, in remission, unspecified Category: Medical Plan: Increased citalopram dose to 20 mg to take once a day in a.m. (3) Essential hypertension: Code(s): I10 - Essential (primary) hypertension Category: Medical Plan: Blood pressure at goal of less than 130/80. Continue with current medication. Reinforced importance of following a low sodium diet, getting regular exercise, and lowering stress levels. (4) Dyslipidemia: Code(s): E78.5 - Hyperlipidemia, unspecified Category: Medical Plan: Reviewed recent fasting lipid profile with patient with levels within normal . Continue pravastatin 40 mg at bedtime , in addition to adherence to low- cholesterol diet and regular exercise, at least 30 minutes 3 to 4 times a week. Advised patient to make healthy food choices, eat more fruits, vegetables, whole grains, wild caught fish and low-fat dairy. Limit amount of meat and fried or fatty food products, as well as processed foods and fast foods. Follow-up scheduled with repeat fasting lipid panel in 12/2024 Orders: Orders Basic Metabolic Panel Fasting 12/26/24 E78.5 - Hyperlipidemia, unspecified, I10 - Essential (primary) hypertension, R73.01 - Impaired fasting glucose Alanine Aminotransferase 12/26/24 E78.5 - Hyperlipidemia, unspecified, I10 - Essential (primary) hypertension, R73.01 - Impaired fasting glucose Aspartate Amino Transferase 12/26/24 E78.5 - Hyperlipidemia, unspecified, I10 - Essential (primary) hypertension, R73.01 - Impaired fasting glucose Lipid Panel 12/26/24 E78.5 - Hyperlipidemia, unspecified, I10 - Essential (primary) hypertension, R73.01 - Impaired fasting glucose Medications: Changed From citalopram 10 mg PO DAILY 90 tabs 3RF F32.9 - Major depressive disorder, single episode, unspecified To citalopram 20 mg PO DAILY 90 tabs 2RF F32.9 - Major depressive disorder, single episode, unspecified
[2024-07-11 10:30] VITALS: BP 126/80; PULSE 81; O2SAT 97; BMI 49.6
== END 2024-07-11 11:14 | disposition home or self-care (01) ==
PROVIDERS: PCP Internal Medicine; Visit Provider Internal Medicine
DX: M25.561 Pain in right knee (principal); M25.562 Pain in left knee; F33.40 Major depressive disorder, recurrent, in remission, unspecified; I10 Essential (primary) hypertension; E78.5 Hyperlipidemia, unspecified

== ENCOUNTER → 2024-07-11 09:58 | Outpatient (BNVA) | payer MEDICARE, SELFPAY | PROVIDERS: PCP Internal Medicine; Visit Provider Internal Medicine | DX: M25.561 Pain in right knee (principal); M25.562 Pain in left knee; F33.40 Major depressive disorder, recurrent, in remission, unspecified; I10 Essential (primary) hypertension; E78.5 Hyperlipidemia, unspecified | CPT/HCPCS: 96127; 99212 ==

== ENCOUNTER 2025-06-11 11:01 | Outpatient (REF) | payer MEDICARE, SELFPAY ==
--- OUTSIDE RECORDS SUMMARY | 2025-06-11 14:45 | XMS_ITS | Patient Health Record ---
Author Organization [facility] [place] Address [address] [place] [address] Care Team Providers Care Bean Roaster Name Role Phone Xiomara APONTE, Johana Duff Primary Care Provider Un available Tyrese Rakesh Unavailable [phone] Allergies Allergen (clinical drug ingredient) Drug/Non Drug Allergy documented on EMR Reaction Allergy Type Onset Date Status ciprofloxacin Cipro itching Drug Allergy Act nunu Coumadin rash Drug Allergy Active Reason For Referral No Information Medications Medication SIG (Take, Route, Frequency, Duration) Notes Start Date End Date Status Metoprolol Succinate ER 50 MG 1 tablet Orally Once a day Active Probiotic Active Pravastatin Sodium 40 MG 1 tablet Orally Once a day Active Citalopram Hydrobromide 10 MG 2 tablets Orally Once a day Active Xarelto Active Ammonium Lactate 12 % 1 application to affected area Externally to feet Twice a day; Duration: 30 days Active traMADol HCl PRN Not-Steve ing Eliquis Not-Taking Calcium + D Active Social History Tobacco Use: Social History Observation Description Date Details (start date - stop date) Former Smoker NA - NA Tobacco Use/Smoking Question Answer Notes Are you a: former smoker When did you start smoking? 2 When did you stop smoking? 2011 Additional Findings: Tobacco Non-User Current no n-smoker Alcohol Screen Question Answer Notes Did you have a drink containing alcohol in the p ast year? No Points 0 Interpretation Negative Tobacco use other than smoking: Question Answer Notes Are you an other tobacco user? No Problems Problem Type SNOMED Code ICD Code Onset Dates Problem Status W/U Status Risk Notes Problem Tinea unguium ([id number]) Tinea unguium (B35.1) Active confirmed Plan Of Treatment Pending Test Test Name Order Date [id number] NAIL, 6 OR MORE 06/25/2017 [id number] NAIL, 6 OR MORE 08/31/2017 [id number] NAIL, 6 OR MORE 11/30/2017 [id number] NAIL, 6 OR MORE 02/15/2018 [id number] NAIL, 6 OR MORE 04/29/2018 [id number] NAIL, 6 OR MORE 07/19/2018 60845-VHZXIKC NAIL, 6 OR MORE 10/25/2018 49816-NRECRZQ NAIL, 6 OR MORE 12/27/2018 97546-JCCSXEM NAIL, 6 OR MORE 03/07/2019 [id number] NAIL, 6 OR MORE 06/06/2019 51091-AZQAQZI NAIL, 6 OR MORE 08/18/2019 [id number] NAIL, 6 OR MORE 10/31/2019 35227-Gdqllgho Plate 10/31/2019 86834-Itxvjagg Plate 08/18/2019 91131-Htywxsuo Plate 06/06/2019 23072-Mhdwfgsx Plate 03/07/2019 54281-Flrlslee Plate 12/27/2018 07407-Aclhhiff Plate 07/19/2018 59008-Kppvzemk Plate 10/25/2018 80975-Lhhxybhy Plate 02/15/2018 80804-Xlxisdyg Plate 04/29/2018 59207-Nbphkpog Plate 08/31/2017 46429-Uylpfypq Plate 11/30/2017 46386-Rdpqvgdz Plate 06/25/2017 82468-Lqfsrove Plate Each Additional 60723-Kphdenpz Plate Each Additional 01/2017 06082-Ndeeqycu Plate Each Additional 02/2018 55176-Jqevkbwg Plate Each Additional 25439-Scaktuqo Plate Each Additional 11/2017 82368-Urxzlpkf Plate Each Additional 14437-Msmcrdxn Plate Each Additional 47085-Vspakjtg Plate Each Additional 10/2018 51297-Tojoflxu Plate Each Additional 07/2019 00333-Rfupmfuu Plate Each Additional 06/2019 49174-Yumwmlog Plate Each Additional 32831-Bghfxtov Plate Each Additional 12/2019 Insurance Providers Payer Name Payer Address Payer Phone Subscriber Number Group Number Insured Name Patient Relationship to Insured Coverage Start Date Coverage End Date [employer] [address] [place] [address] [id number] Cate Parker Self - patient is the insured [employer] [address] [place] [address] [id number] Cate Parker Self - patient is the insured Medical (General) History Medical History History ICD Code Arthritis Back,Hip,and Knee pain Depression Gall bladder problems Heart disease High blood pressure Polio Measles Mumps Chicken pox CAD Surgical History Surgery Date(Month/Year) hysterectomy appendectomy gall bladder Hospitalization History Reason Date(Month/Year) [facility] for pneumonia 2018
== END 2025-06-11 11:02 | disposition home or self-care (01) ==
LOC: HO.HMGCLDS 11:01
PROVIDERS: PCP Internal Medicine; Visit Provider Internal Medicine
DX: Z13.89 Encounter for screening for other disorder (principal)
CPT/HCPCS: 96127; 99212

== ENCOUNTER 2025-06-11 12:22 | Outpatient (AMB) | payer MEDICARE, SELFPAY ==
--- NOTE | 2025-06-11 12:49 | MHC.PC.OV ---
Vital Signs 06/11/25 12:53 BMI Reason not done Patient refused/unable BP 110/70 Blood Pressure Location Rt brachial Position Sitting Respiration 16 Pulse 86 Pulse Source Pulse Oximeter Temp 98.1 F Temp Source Oral Pulse Oximetry (%) 95 Oxygen Delivery Method Room Air Intake Visit Reasons: medication Intake Note: Pt is here today to discuss paperwork daughter brought to request services Allergies ciprofloxacin Allergy (Unknown, Verified 06/11/25 16:04) HIVES warfarin (Coumadin) Allergy (Unknown, Verified 06/11/25 16:04) Rash Medication List - Last Reconciled 06/11/25 by Johana Solano MD acetaminophen ER (Tylenol Arthritis Pain) 650 mg PO Q12H calcium carbonate-vitamin D3 600 mg-10 mcg (400 unit) caps PO citalopram 20 mg PO DAILY ibuprofen 400 mg PO Q8H metoprolol succinate ER 100 mg PO DAILY pravastatin 40 mg PO BEDTIME rivaroxaban 20 mg PO DAILY Tobacco use date assessed: 06/11/25 Fall risk assessment: No Falls in past year Last assessed Fall Risk: 06/11/25 Dental Screening Dental Screen Date: 06/11/25 Did you have a dental visit in the last 12 months?: No Did you have a dental problem in the last 6 months where you did not have access to dental care?: No Was dental information given to patient?: Patient declined HPI medication HPI Details 84-year-old lady with history of hypertension, arthritis, obesity, dyslipidemia, depression, and persistent atrial fibrillation currently on Eliquis, here today accompanied by daughter for follow-up and requesting assistance in getting transportation for patient and surgical services tech to help with meals. Patient states that she makes too much to be able to avail of meals on wheels. Has not been able to leave her house for the last 9 months due to difficulty getting transportation do and from doctor's appointments and is unable to use public transportation due to gait instability. She states that she has [facility] for help with transportation, but has not received help. Her daughter states that she had to rent a vehicle that would fit her mother just to be able to get to this appointments. Has not been seen by her washing machine repairer since last year for follow-up, and has not had any recent labs done, again due to difficulty with leaving the house. [facility] Medical History (Updated 06/17/25 @ 21:19 by Johana Solano MD) Depression Abscess of Bartholin's gland Gait instability Osteoarthritis involving multiple joints on both sides of body Bilateral knee pain Recurrent depressive disorder, currently in remission Impaired fasting glucose Essential hypertension Dyslipidemia FH: cholecystectomy Afib HTN (hypertension) Surgical History Hx of cholecystectomy H/O: hysterectomy History of appendectomy Family History Father No problems noted. Mother No problems noted. Brother No problems noted. Son Mental health disorder Son No problems noted. Daughter Mental health disorder Daughter No problems noted. Daughter No problems noted. Social History Housing: Apartment Alcohol intake: never Patient Tobacco Use Status: Former Tobacco user e-Cigarette/Vaping Use: Never Used Current occupational status: retired Cognitive needs: No Hearing needs: No Vision needs: Yes Questionnaire PHQ-9 Over the last 2 weeks, how often have you been bothered by any of the following problems? 1. Little interest or pleasure in doing things: several days 2. Feeling down, depressed, or hopeless: several days 3. Trouble falling or staying asleep, or sleeping too much: several days 4. Feeling tired or having little energy: nearly every day 5. Poor appetite or overeating: not at all 6. Feeling bad about yourself - or that you are a failure or have let yourself or your family down: not at all 7. Trouble concentrating on things, such as reading the newspaper or watching television: not at all 8. Moving or speaking so slowly that other people could have noticed. Or the opposite - being so fidgety or restless that you have been moving around a lot more than usual: several days 9. Thoughts that you would be better off or of hurting yourself in some way: not at all Total score: 7 Depression Screening Interpretation: Positive Depression Screening Follow-up: Existing condition, In treatment and Follow-up Visit Requested Depression Screening Done: Yes 20719 - PHQ-9 Billing: Yes Source: Developed by Drs. Ck Mcgee, Sruthi Walker, Lamonte Morales and colleagues, with an educational opal from [email or web address]. Thrive Questionnaire Date Thrive assessed: 07/11/24 I am a: Patient What is your living situation today?: I have a steady place to live Within the past 12 months, did the food you bought not last and you didn't have the money to get more?: Never true Within the past 12 months, did you worry whether your food would run out before you got money to buy more?: Never true Do you have trouble paying for medicines?: No Do you have trouble getting transportation to medical appointments?: Yes Do you have trouble paying your heating and electricity bill?: No Do you have trouble taking care of your child, family member or friend?: No Do you have trouble with day-to-day activities such as bathing, preparing meals, shopping, managing finances, etc.?: Yes Are you currently unemployed and looking for a job?: No Are you interested in more education?: No Please select the resources that you would like help with: Transportation Currently or been in a relationship where the following occur: No concerns reported THRIVE Score: 1 AUDIT C Alcohol Use Questionnaire (AUDIT-C) 1. How often do you have a drink containing alcohol?: Never 3. How often do you have six or more drinks on one occasion?: Never Total Score: 0 Score Reviewed/Action Taken: Yes CHELY-7 AMB Questionnaire CHELY-7 Date CHELY - 7 assessed: 06/11/25 Feeling nervous, anxious, or on edge: 0 = Not at all Not being able to stop or control worryin = Not at all Worrying too much about different things: 1 = Several days Trouble relaxin = Not at all Being so restless that it is hard to sit still: 0 = Not at all Becoming easily annoyed or irritable: 0 = Not at all Feeling afraid as if something awful might happen: 0 = Not at all Total CHELY-7 score (0-4 normal; 5-9 mild; 10-14 moderate; 15-21 severe): 1 Source: Developed by Drs. Ck Mcgee, Sruthi Walker, Lamonte Morales and colleagues, with an educational opal from [email or web address]. Review of Systems Const Denies fever(s) and Denies frequent falls Eyes Reports no additional complaints ENT Denies dizziness and Reports disequilibrium Card Denies chest pain, Denies leg edema, Reports palpitations and Reports dyspnea on exertion Resp Denies cough and Reports dyspnea on exertion GI Denies abdominal pain, Denies hematochezia, Denies change in bowel habits and Denies dyspepsia Reports no additional complaints Musc Reports arthralgias, Denies joint swelling, Reports muscle weakness, Denies radiating pain into limb and Reports stiffness Neuro Denies dizziness, Denies frequent falls and Reports disequilibrium Psych Reports as per HPI Endo Reports palpitations Driss/Lymph Denies easy bleeding and Denies easy bruising Aller/Immun Reports no additional complaints Physical exam (Primary Care) Vital Signs: Last Vital Signs Temp 98.1 F 06/11/25 12:53 Pulse 86 06/11/25 12:53 Resp 16 06/11/25 12:53 BP 110/70 06/11/25 12:53 Pulse Ox 95 06/11/25 12:53 Oxygen Delivery Method Room Air 06/11/25 12:53 Tobacco/Smoking Status: Tobacco use Status Tobacco use date assessed 06/11/25 06/11/25 13:00 Patient Tobacco Use Status Former Tobacco user 06/11/25 12:51 e-Cigarette/Vaping Use Never Used 06/11/25 12:51 PHQ-9: PHQ-9 Score PHQ-9: Total score 7 06/12/25 14:29 Depression Screening Interpretation: Positive Depression Screening Follow-up: Existing condition, In treatment and Follow-up Visit Requested Thrive Assessment: Date of Thrive Assessment Date Thrive assessed 07/11/24 06/11/25 12:51 Currently or been in a relationship where the following occur: No concerns reported Const Other: Alert oriented x3, accompanied by daughter , patient very distraught as visit progressed Nutritional Appearance: obese Orientation/consciousness: patient oriented x3 Limitations: wheelchair HENMT Head: Yes normocephalic Ears: external ears normal General nose exam: Normal external nose present Face and sinus: Yes face symmetric Mouth: Normal oral and palatal mucosa present and moist mucous membranes Eyes General: appearance normal, both eyes and all related structures Neck Neck: Yes full ROM, Yes no lymphadenopathy and Yes supple Resp Auscultation: clear to auscultation bilaterally Cardio Other: Irregularly irregular rhythm GI Inspection: Yes obesity Palpation (GI): Soft to palpation, nontender and no guarding Auscultation: normal bowel sounds Skin General skin exam: no rashes or lesions noted Neuro Other: Unable to stand or walk for extended periods of time General: patient oriented x3 Cognition (Neuro): normal cognition Extrem Other: Trace ankle edema present no calf tenderness, no gross bone deformity or joint swelling Psych Appearance: grossly normal Mental Status: mental status grossly normal Speech and movement: Normal speech and movement present Affect: Irritable affect present Coding Level of Care Code Est Pt Level 4 (66253) Complex EM visit Add On G2211 Diagnoses Dyslipidemia E78.5 Essential hypertension I10 Impaired fasting glucose R73.01 Permanent atrial fibrillation I48.21 Osteoarthritis involving multiple joints on both sides of body M15.9 Gait instability R26.81 Moderate episode of recurrent major depressive disorder F33.1 Depression Type: major depressive disorder Major depression recurrence: recurrent Active/Remission status: currently active Major depression episode severity: moderate Additional Codes PHQ-9 - 06889 - PHQ-9 Billing: Yes ([id number]) Assessment & Plan Assessment & Plan (1) Dyslipidemia: Code(s): E78.5 - Hyperlipidemia, unspecified Category: Medical Plan: Currently on pravastatin 40 mg at bedtime. Fasting lipids ordered be done by [facility] due to mobility issues and difficulty with transportation (2) Essential hypertension: Code(s): I10 - Essential (primary) hypertension Category: Medical Plan: The patient is currently on metoprolol for blood pressure management. Regular monitoring of blood pressure and adherence to medication is advised. Continue with low-salt diet (3) Impaired fasting glucose: Code(s): R73.01 - Impaired fasting glucose Category: Medical Plan: Your previous fasting blood sugars were elevated above 100 mg/dL. Impaired glucose metabolism increases the risk for developing diabetes mellitus type 2, as well as heart attack and stroke later on. Lifestyle changes that promotes weight loss, healthy eating habits, and regular exercise are important, and can prevent the progression to diabetes. Labs by home draw ordered to check glucose levels (4) Permanent atrial fibrillation: Code(s): I48.21 - Permanent atrial fibrillation Category: Medical Plan: The patient has not seen her washing machine repairer, Dr. Fernandez, since last year and is overdue for an echocardiogram to monitor her condition. Currently on Xarelto, is prescribed to prevent thromboembolic events. A follow-up with the washing machine repairer is necessary to reassess her treatment plan and ensure appropriate management of her atrial fibrillatio (5) Osteoarthritis involving multiple joints on both sides of body: Code(s): M15.9 - Polyosteoarthritis, unspecified Category: Medical Plan: Taking Tylenol arthritis 650 mg every 12 hours as needed (6) Gait instability: Code(s): R26.81 - Unsteadiness on feet Category: Medical Plan: The patient experiences significant mobility challenges, requiring a wheelchair and rollator for movement. Coordination with surgical services tech to explore disability benefits and transportation assistance is recommended. (7) Depression: Code(s): F32.9 - Major depressive disorder, single episode, unspecified Category: Medical Qualifiers: Depression Type: major depressive disorder Major depression recurrence: recurrent Active/Remission status: currently active Major depression episode severity: moderate Qualified Code(s): F33.1 - Major depressive disorder, recurrent, moderate Plan: currently on citalopram for depression,stressed importance with medication adherence. Orders: Orders Vitamin D 25-OH Total 06/11/25 E78.5 - Hyperlipidemia, unspecified, F33.40 - Major depressive disorder, recurrent, in remission, unspecified, I10 - Essential (primary) hypertension, I48.21 - Permanent atrial fibrillation, M15.9 - Polyosteoarthritis, unspecified, R26.81 - Unsteadiness on feet, R73.01 - Impaired fasting glucose Hemoglobin A1c 06/11/25 E78.5 - Hyperlipidemia, unspecified, F33.40 - Major depressive disorder, recurrent, in remission, unspecified, I10 - Essential (primary) hypertension, I48.21 - Permanent atrial fibrillation, M15.9 - Polyosteoarthritis, unspecified, R26.81 - Unsteadiness on feet, R73.01 - Impaired fasting glucose Complete Blood Count Auto Diff 06/11/25 E78.5 - Hyperlipidemia, unspecified, F33.40 - Major depressive disorder, recurrent, in remission, unspecified, I10 - Essential (primary) hypertension, I48.21 - Permanent atrial fibrillation, M15.9 - Polyosteoarthritis, unspecified, R26.81 - Unsteadiness on feet, R73.01 - Impaired fasting glucose
[2025-06-11 12:53] VITALS: BP 110/70; PULSE 86; RESP 16; TEMP 36.7; O2SAT 95
== END 2025-06-11 13:49 | disposition home or self-care (01) ==
LOC: HO.HMCC 12:22
PROVIDERS: PCP Internal Medicine; Visit Provider Internal Medicine
DX: E78.5 Hyperlipidemia, unspecified (principal); I48.21 Permanent atrial fibrillation; F33.1 Major depressive disorder, recurrent, moderate; I10 Essential (primary) hypertension; R73.01 Impaired fasting glucose; M15.9 Polyosteoarthritis, unspecified; R26.81 Unsteadiness on feet